=== PATIENT | female | born 1980 | race Caucasian/White ===

== ENCOUNTER 2017-05-29 19:27 | Emergency (ER) | payer OTHER ==
[2017-05-29 19:40] VITALS: RESP 18
[2017-05-29] MEDS ORDERED: SODIUM CHLORIDE 0.9% 500 ML IV ONE (20:05)
--- NOTE | 2017-05-29 20:12 | ED ---
Female Urogenital HPI - General Chief complaint: Vaginal Bleeding Stated complaint: poss miscarriage/10 wks preg Time Seen by Provider: 05/29/17 19:56 Source: patient Mode of arrival: ambulatory Limitations: no limitations - History of Present Illness Initial comments: 36-year-old female patient presented to emergency department today for evaluation of vaginal bleeding. Patient states about an hour ago she was walking through the mall, she states she felt a gush and began to have some left -sided abdominal cramping. Patient states that she went home was having bright red vaginal bleeding. States that she did have to put a pad on. States is similar to when she had her period. Patient states she is 10 weeks . She has had her initial ultrasound which did show a viable intrauterine . Patient is A2. Patient has had a miscarriage and a tubal in the past. Patient states she is also having some left-sided flank pain with this. She denies any hematuria, dysuria, urinary frequency or urinary urgency. Denies any difficulty with bowel movements. Patient she has one sexual partner is not concerned for any sexually transmitted diseases. Patient denies any recent fever, chills, shortness breath, chest pain, nausea, vomiting, diarrhea, constipation, back pain, numbness, tingling, weakness, hematuria, headache, visual changes, or any other complaints. - Related Data Home Medications Medication Instructions Recorded Confirmed No Known Home Medications [No 01/05/16 05/29/17 Known Home Medications] Allergies Allergy/AdvReac Type Severity Reaction Status Date / Time metoclopramide HCl AdvReac Hallucinati Verified 05/29/17 21:06 [From [facility]] ons Review of Systems ROS Statement: Those systems with pertinent positive or pertinent negative responses have been documented in the HPI. ROS Other: All systems not noted in ROS Statement are negative. Past Medical History Past Medical History: No Reported History Additional Past Medical History / Comment(s): occasional palpitations History of Any Multi-Drug Resistant Organisms: None Reported Additional Past Surgical History / Comment(s): D&C Past Anesthesia/Blood Transfusion Reactions: Previous Problems w/ Anesthesia Additional Past Anesthesia/Blood Transfusion Reaction / Comment(s): had some SOB waking up after last surgery Past Psychological History: Anxiety Smoking Status: Former smoker Past Alcohol Use History: None Reported Past Drug Use History: None Reported - Past Family History Mother Family Medical History: No Reported History General Exam Limitations: no limitations General appearance: alert, in no apparent distress ENT exam: Present: normal exam, normal oropharynx, mucous membranes moist Neck exam: Present: normal inspection. Absent: tenderness, meningismus, lymphadenopathy Respiratory exam: Present: normal lung sounds bilaterally. Absent: respiratory distress, wheezes, rales, rhonchi, stridor Cardiovascular Exam: Present: regular rate, normal rhythm, normal heart sounds. Absent: systolic murmur, diastolic murmur, rubs, gallop, clicks GI/Abdominal exam: Present: soft, normal bowel sounds, other (Gravid abdomen). Absent: distended, tenderness, guarding, rebound, rigid External exam: Present: normal external exam Speculum exam: Present: vaginal bleeding (Small amount of dark red blood in the vaginal vault.), other (Unable to view the cervix, patient stated exam was too uncomfortable and asked me to stop. Patient refused to have reexam.). Absent: foreign body By manual exam: Present: other (Patient refused bimanual exam.) Extremities exam: Present: normal inspection, full ROM, normal capillary refill. Absent: tenderness, pedal edema, joint swelling, calf tenderness Back exam: Present: normal inspection. Absent: CVA tenderness (R), CVA tenderness (L) Neurological exam: Present: alert, oriented X3, CN II-XII intact Psychiatric exam: Present: normal affect, normal mood Skin exam: Present: warm, dry, intact, normal color. Absent: rash Course Vital Signs 05/29/17 05/29/17 19:35 21:35 Temperature 99.5 F 98.6 F Pulse Rate 114 H 99 Respiratory 18 18 Rate Blood Pressure 140/74 113/60 O2 Sat by Pulse 100 99 Oximetry Medical Decision Making - Medical Decision Making 36-year-old female patient presented to emergency department today for evaluation of vaginal bleeding 1 hour. Patient is 10 weeks . Ultrasound showed a viable intrauterine measuring 9 weeks 6 days with a heart rate of 171. There was evidence of a subchorionic bleed on the ultrasound. Patient did not let me complete full pelvic and bimanual exam, she refused due to the exam being uncomfortable. Patient was discharged home with instructions to follow-up with her [employer]CH[employer] JOB [employer]TAIN over the next 1-2 days. She is instructed to return here immediately for any new, worsening, or concerning symptoms. Patient verbalizes understanding and agrees with this plan. - Lab Data Result diagrams: 05/29/17 20:15 05/29/17 20:15 Lab Results 05/29/17 05/29/17 05/29/17 Range/Units 20:15 20:15 20:15 WBC 10.5 (3.8-10.6) k/uL RBC 4.51 (3.80-5.40) m/uL Hgb 12.6 (11.4-16.0) gm/dL Hct 37.6 (34.0-46.0) % MCV 83.3 (80.0-100.0) fL MCH 27.8 (25.0-35.0) pg MCHC 33.4 (31.0-37.0) g/dL RDW 14.4 (11.5-15.5) % Plt Count 161 (150-450) k/uL Neutrophils % 71 % Lymphocytes % 22 % Monocytes % 3 % Eosinophils % 1 % Basophils % 0 % Neutrophils # 7.5 (1.3-7.7) k/uL Lymphocytes # 2.3 (1.0-4.8) k/uL Monocytes # 0.3 (0-1.0) k/uL Eosinophils # 0.1 (0-0.7) k/uL Basophils # 0.0 (0-0.2) k/uL Sodium 135 L (137-145) mmol/L Potassium 3.8 (3.5-5.1) mmol/L Chloride 105 (98-107) mmol/L Carbon Dioxide 21 L (22-30) mmol/L Anion Gap 9 mmol/L BUN 10 (7-17) mg/dL Creatinine 0.50 L (0.52-1.04) mg/dL Est GFR (MDRD) Af Amer >60 (>60 ml/min/1.73 sqM) Est GFR (MDRD) Non-Af >60 (>60 ml/min/1.73 sqM) Glucose 91 (74-99) mg/dL Calcium 9.3 (8.4-10.2) mg/dL Total Bilirubin 0.2 (0.2-1.3) mg/dL AST 26 (14-36) U/L ALT 43 (9-52) U/L Alkaline Phosphatase 64 (38-126) U/L Total Protein 6.8 (6.3-8.2) g/dL Albumin 4.0 (3.5-5.0) g/dL HCG, Quant 71968.2 mIU/mL Urine Color Urine Appearance (Clear) Urine pH (5.0-8.0) Ur Specific [place] (1.001-1.035) Urine Protein (Negative) Urine Glucose (UA) (Negative) Urine Ketones (Negative) Urine Blood (Negative) Urine Nitrite (Negative) Urine Bilirubin (Negative) Urine Urobilinogen (<2.0) mg/dL Ur Leukocyte Esterase (Negative) Urine RBC (0-5) /hpf Urine WBC (0-5) /hpf Ur Squamous Epith Cells (0-4) /hpf Urine Mucus (None) /hpf Blood Type A Positive Blood Type Recheck No 05/29/17 Range/Units 20:20 WBC (3.8-10.6) k/uL RBC (3.80-5.40) m/uL Hgb (11.4-16.0) gm/dL Hct (34.0-46.0) % MCV (80.0-100.0) fL MCH (25.0-35.0) pg MCHC (31.0-37.0) g/dL RDW (11.5-15.5) % Plt Count (150-450) k/uL Neutrophils % % Lymphocytes % % Monocytes % % Eosinophils % % Basophils % % Neutrophils # (1.3-7.7) k/uL Lymphocytes # (1.0-4.8) k/uL Monocytes # (0-1.0) k/uL Eosinophils # (0-0.7) k/uL Basophils # (0-0.2) k/uL Sodium (137-145) mmol/L Potassium (3.5-5.1) mmol/L Chloride (98-107) mmol/L Carbon Dioxide (22-30) mmol/L Anion Gap mmol/L BUN (7-17) mg/dL Creatinine (0.52-1.04) mg/dL Est GFR (MDRD) Af Amer (>60 ml/min/1.73 sqM) Est GFR (MDRD) Non-Af (>60 ml/min/1.73 sqM) Glucose (74-99) mg/dL Calcium (8.4-10.2) mg/dL Total Bilirubin (0.2-1.3) mg/dL AST (14-36) U/L ALT (9-52) U/L Alkaline Phosphatase (38-126) U/L Total Protein (6.3-8.2) g/dL Albumin (3.5-5.0) g/dL HCG, Quant mIU/mL Urine Color Yellow Urine Appearance Clear (Clear) Urine pH 6.0 (5.0-8.0) Ur Specific [place] 1.018 (1.001-1.035) Urine Protein Trace H (Negative) Urine Glucose (UA) Negative (Negative) Urine Ketones Trace H (Negative) Urine Blood Large H (Negative) Urine Nitrite Negative (Negative) Urine Bilirubin Negative (Negative) Urine Urobilinogen <2.0 (<2.0) mg/dL Ur Leukocyte Esterase Negative (Negative) Urine RBC >182 H (0-5) /hpf Urine WBC 2 (0-5) /hpf Ur Squamous Epith Cells 1 (0-4) /hpf Urine Mucus Rare H (None) /hpf Blood Type Blood Type Recheck - Radiology Data Radiology results: report reviewed, image reviewed Abdominal ultrasound shows a viable intrauterine measuring 9 weeks 6 days with a heart rate of 171. Ultrasound does show presence of a subchorionic bleed. Disposition Clinical Impression: Threatened miscarriage, Subchorionic hemorrhage in first trimester, Abdominal pain during in first trimester Disposition: HOME SELF-CARE Condition: Good Instructions: Threatened Miscarriage (ED), Abdominal Pain in (ED), Subchorionic Hemorrhage (ED) Additional Instructions: Call [employer] tomorrow for follow-up appointment. Monitor rate of bleeding (keep track of pad usage), do not insert tampons. Return immediately for any dizziness, weakness, new, worsening, or concerning symptoms. Referrals: Chris Keene MD [Primary Care Provider] - 1-2 days Bulmaro Alexis MD [STAFF PHYSICIAN] - 1-2 days Time of Disposition: 22:10
[2017-05-29 20:36] LABS: Basophils % (A) 0 %; CH 28.5; CHCM 34.4; Eosinophils # (A) 0.1 k/uL (0-0.7); Eosinophils % (A) 1 %; HCT 37.6 % (34.0-46.0); HGB 12.6 gm/dL (11.4-16.0); Luc # (Auto) 0.18; Luc % (Auto) 2; Lymphocytes # (A) 2.3 k/uL (1.0-4.8); Lymphocytes % (A) 22 %; MCH 27.8 pg (25.0-35.0); MCHC 33.4 g/dL (31.0-37.0); MCV 83.3 fL (80.0-100.0); Mean Platelet Volume 9.7; Monocytes # (A) 0.3 k/uL (0-1.0); Monocytes % (A) 3 %; Neutrophils # (A) 7.5 k/uL (1.3-7.7); Neutrophils % (A) 71 %; RBC 4.51 m/uL (3.80-5.40); RDW 14.4 % (11.5-15.5); WBC 10.5 k/uL (3.8-10.6); WBC (Perox) 10.68
[2017-05-29 20:46] LABS: ALT 43 U/L (9-52); AST 26 U/L (14-36); Alkaline Phosphatase 64 U/L (38-126); Anion Gap 9 mmol/L; Blood Urea Nitrogen 10 mg/dL (7-17); Calcium 9.3 mg/dL (8.4-10.2); Carbon Dioxide 21 mmol/L (22-30); Chloride 105 mmol/L (98-107); Glucose 91 mg/dL (74-99); Non-African American GFR(MDRD) >60 (>60 ml/min/1.73 sqM); Potassium 3.8 mmol/L (3.5-5.1); Sodium 135 mmol/L (137-145); Total Bilirubin 0.2 mg/dL (0.2-1.3); Total Protein 6.8 g/dL (6.3-8.2)
[2017-05-29 20:59] LABS: Appearance,Urine Clear (Clear); Bilirubin,Urine Negative (Negative); Glucose,Urine (UA) Negative (Negative); Ketones,Urine Trace (Negative); Leukocyte Esterase,Urine Negative (Negative); Mucus,Urine Rare /hpf; Nitrite,Urine Negative (Negative); Particle Count 1682; Protein,Urine Trace (Negative); RBC,Urine >182 /hpf (0-5); Specific Gravity,Urine 1.018 (1.001-1.035); Squamous Epithelial Cell,Urine 1 /hpf (0-4); UA Billing (MACRO vs. MICRO) MICRO; Urobilinogen,Urine <2.0 mg/dL (<2.0); WBC,Urine 2 /hpf (0-5)
--- NOTE | 2017-05-29 21:27 | US ---
EXAMINATION TYPE: US OB <= 14 wk fetus DATE OF EXAM: 05/29/2017 COMPARISON: NONE CLINICAL HISTORY: pain. Bleeding x 1 day EXAM PERFORMED: Transabdominal (TA) EXAM MEASUREMENTS: GESTATIONAL AGE / DATING Physician Established: (10 weeks/2 days) EDC: 12/23/2017 Dates by LMP: (10 weeks/2 days) EDC: 12/23/2017 Dates by First Scan: This is first scan Dates by Current Scan for: ( 9 weeks/6 days) EDC: 12/26/2017 MATERNAL ANATOMY Uterus: 12.8 x 8.4 x 10.4 cm Left Ovary: 3.3 x 1.9 x 3.3 cm Post CDS / Adnexa: wnl Presence of free fluid: no Presence of corpus luteal cyst: no Presence of subchorionic bleed: yes GESTATION / SURVEY CRL: 3.87 (10 weeks/5 days) MSD: 3.8 (9 weeks/0 days) Yolk Sac (normal less than 6mm): 0.47 Heart Rate: 171 bpm Rhythm: Normal IUP: Viable IUP Date of LMP: 03/18/2017 Beta HcG (if available): not available IMPRESSION: SINGLE VIABLE INTRAUTERINE WITH HEART RATE 171 BPM.
[2017-05-29 21:36] VITALS: BP 113/60; PULSE 99; TEMP 98.6
== END 2017-05-29 22:32 | disposition home or self-care (01) ==
LOC: EC 19:27
DX: O20.0 Threatened abortion (principal); O43.891 Other placental disorders, first trimester; O09.291 Supervision of pregnancy with other poor reproductive or obstetric history, first trimester; Z98.890 Other specified postprocedural states; Z87.891 Personal history of nicotine dependence; Z88.8 Allergy status to other drugs, medicaments and biological substances; Z3A.10 10 weeks gestation of pregnancy
CPT/HCPCS: 36415; 76801; 80053; 81001; 84702; 85025; 86900; 86901; 96360; 99284

== ENCOUNTER → 2017-06-10 | Outpatient (CLI) | payer OTHER ==
[2017-06-10 10:20] LABS: CH 26.9; CHCM 33.1; HDW 2.48; HGB 12.4 gm/dL (11.4-16.0); MCH 28.2 pg (25.0-35.0); MCHC 34.5 g/dL (31.0-37.0); MCV 81.8 fL (80.0-100.0); Mean Platelet Volume 9.3; RDW 13.9 % (11.5-15.5); WBC 8.2 k/uL (3.8-10.6)
[2017-06-10 10:37] LABS: Glucose 83 mg/dL (74-99); Non-African American GFR(MDRD) >60 (>60 ml/min/1.73 sqM)
[2017-06-10 10:59] LABS: Hepatitis B Surface Ag Index 0.04
[2017-06-10 15:46] LABS: Treponemal Ab Non-Reactive (Non-Reactive)
[2017-06-11 04:56] LABS: Toxoplasma Antibody (IgG) <3.0 IU/mL (<7.2)
== END | disposition home or self-care (01) ==
LOC: LABWHC1 09:22
PROVIDERS: ATTEND Obstetrics & Gynecology
DX: Z34.91 Encounter for supervision of normal pregnancy, unspecified, first trimester (principal)
CPT/HCPCS: 36415; 82565; 82947; 85027; 86762; 86777; 86778; 86780; 86850; 86900; 86901; 87340; 87390

== ENCOUNTER 2017-12-16 04:20 | Inpatient (IN) | payer OTHER ==
[2017-12-16 04:57] VITALS: BMI 40.0
[2017-12-16] MEDS ORDERED: CITRIC ACID-SODIUM CITRATE 15 ML CUP PO ONE (05:06)
[2017-12-16] MEDS ORDERED: LACTATED RINGERS 1,000 ML IV ONE (05:06)
[2017-12-16] MEDS ORDERED: ceFAZolin IN SWFI 2 GM/20 ML SYRINGE IVP ONE (05:06)
[2017-12-16] MEDS ORDERED: LACTATED RINGERS 1,000 ML IV SCH (05:15)
[2017-12-16] MEDS ORDERED: OXYTOCIN 10 UNIT/ML 1 ML VIAL ONE (05:58)
[2017-12-16] MEDS ORDERED: MORPHINE SULFATE (PF) 0.3 MG/0.3 ML SYR ONE (05:58)
[2017-12-16] MEDS ORDERED: fentaNYL (PF) 50 MCG/ML 2 ML AMP ONE (05:58)
[2017-12-16] MEDS ORDERED: KETOROLAC 30 MG/ML 1 ML VIAL ONE (05:58)
[2017-12-16] MEDS ORDERED: DEXAMETHASONE SOD PHOS (MDV) 100 MG/10 ML VIAL ONE (05:58)
[2017-12-16] MEDS ORDERED: MIDAZOLAM 2 MG/2 ML VIAL ONE (05:58)
[2017-12-16 06:02] LABS: Anisocytosis Slight; Basophils % (A) 0 %; Eosinophils # (A) 0.1 k/uL (0-0.7); Eosinophils % (A) 1 %; HCT 32.7 % (34.0-46.0); HGB 10.7 gm/dL (11.4-16.0); Lymphocytes # (A) 2.2 k/uL (1.0-4.8); Lymphocytes % (A) 24 %; MCH 25.5 pg (25.0-35.0); MCHC 32.7 g/dL (31.0-37.0); MCV 77.9 fL (80.0-100.0); Mean Platelet Volume 11.9; Microcytosis Slight; Monocytes # (A) 0.3 k/uL (0-1.0); Monocytes % (A) 4 %; Neutrophils # (A) 6.2 k/uL (1.3-7.7); Neutrophils % (A) 68 %; Platelet Count 157 k/uL (150-450); WBC 9.1 k/uL (3.8-10.6)
[2017-12-16] MEDS ORDERED: ZOLPIDEM 5 MG TAB PO PRN (06:54)
[2017-12-16] MEDS ORDERED: NALOXONE 0.4 MG/ML 1 ML VIAL IV PRN (06:54)
[2017-12-16] MEDS ORDERED: ONDANSETRON 4 MG/2 ML VIAL IVP PRN (06:54)
[2017-12-16] MEDS ORDERED: SIMETHICONE 80 MG CHEWABLE PO PRN (06:54)
[2017-12-16] MEDS ORDERED: diphenhydrAMINE 25 MG CAP PO PRN (06:54)
[2017-12-16] MEDS ORDERED: ACETAMINOPHEN TAB 325 MG TAB PO PRN (06:54)
[2017-12-16] MEDS ORDERED: diphenhydrAMINE 50 MG/ML 1 ML VIAL IVP PRN (06:54)
[2017-12-16] MEDS ORDERED: OXYTOCIN 20 UNITS/1000 ML NS 1,000 ML IV SCH (07:00)
--- NOTE | 2017-12-16 07:12 | P.OP ---
Date of Procedure: 12/16/17 Preoperative Diagnosis: #1:39 week intrauterine . #2: Spontaneous rupture membranes. #3: Known breech presentation. #4: Multi parity desires permanent sterilization Postoperative Diagnosis: same Procedure(s) Performed: primary low transverse section and bilateral partial salpingectomy. Anesthesia: spinal Surgeon: Bulmaro Alexis Stock Controller #1: Juliana Garcia Estimated Blood Loss (ml): 800 Pathology: other (placenta and bilateral fallopian tube segments) Condition: stable Disposition: floor Indications for Procedure: please see dictated H&P for intimate details of this patient's admission. Brief summary this is a pleasant 37-year-old 5 para 2 female 39 weeks gestation with known breech presentation who initially was scheduled for C- section and tubal ligation this however had spontaneous rupture membranes earlier this morning. Patient's found to be in active labor ruptured and still breech presentation. Patient now presents for primary section and tubal ligation. Patient does understand that a tubal ligation is permanent however there is a failure rate of approximately 5-10 per thousand procedures done. She also understands that surgery itself has inherent risks including risks of infection, bleeding, possible injury to bowel, bladder, vessels, and/or other organs. All the patient's questions are answered and a written consent is obtained. Operative Findings: this is a vigorous viable female infant Apgars were 9 and 9 delivery time was 0620 hours. was jesika breech presentation. Patient normal appearing uterus tubes and ovaries. Description of Procedure: this patient is taken to the operating room where she sat up and spinal anesthetic is administered without incident. Sheet RD had a Solano catheter placed to straight drain. With adequate level of anesthesia she has abdominal prep and drape. Scalpels and taken Pfannenstiel skin incision is then made. A second scalpel is taken down to the fascia the fascia scored with a knife. Fascial incision extended bilaterally using the Godfrey scissors. Fascia is then dissected sharply off the rectus muscles. Rectus muscles are the peritoneum was identified and entered sharply. Bladder blade is then placed. Bladder peritoneum was taken off the lower uterine segment sharply. Scalpels and taken a low transverse uterine incision is then made. Using a hemostat I into the uterine cavity bluntly and there is loss of clear fluid. Infant is found to be in sacrum anterior jesika breech presentation. Using the usual breech maneuvers, this is delivered. This is a vigorous viable female infant Apgars 9 and 9 delivery time is 0620 hours. Infant has spontaneous respirations and good cry and grossly appears normal. After delivery of the the umbilical cord is doubly clamped and cut appears to be trivascular. Senna is then manually extracted intact. Uterus is then externalized. Uterine incision demarcated with Cates clamps and then closed using 0 Vicryl running locked fashion. 2 layers are done. With this done I then reapproximate the bladder peritoneum with 3-0 Vicryl. Excellent hemostasis is noted. Then turned my attention to the left fallopian tube and approximately 4 cm from the cornual insertion a small window made to the mesial salpinx using Bovie cautery. Using 2-0 silk I doubly ligate a segment of the left fallopian tube. This is excised and handed off to pathology. I cauterize the tubal ends. Using a similar technique I do the right fallopian tube segment as well. This done and excellent hemostasis noted excess fluid is removed from the abdomen and pelvis. Uterus is gently placed back into the abdomen and I suspect the tubal ends which are hemostatic and uterine incision which is hemostatic. Parietal peritoneum was then closed using 0 Vicryl running fashion. Rectus muscles reapproximated Vicryl interrupted fashion. Fascia is then reapproximated in 0 PDS in a running fashion. Fascial incision is intact and hemostatic. Subcutaneous tissues and closed using a 3-0 Vicryl. Skin is and closed using mauricio. All counts are correct 3. There are no complications. Infant and mother are taken to the birthing suite in satisfactory condition.
[2017-12-16 07:14] LABS: Large Platelets Present
--- NOTE | 2017-12-16 07:17 | P.HPOB ---
History of Present Illness H&P Date: 12/16/17 Chief Complaint: leaking fluid and contractions, known breech this patient is a pleasant 37-year-old 5 para 2 female estimated gestational age approximately 39 weeks with known breech presentation scheduled for section and tubal ligation on . Patient states that her water broke earlier this morning she is now having active contractions. care has been otherwise uncomplicated and was breech at 35 weeks in the vertex and the most recently reverted back to breech. Review of Systems Genitourinary: Reports Menstruation: Reports amenorrhea Past Medical History Past Medical History: No Reported History Additional Past Medical History / Comment(s): occasional palpitations History of Any Multi-Drug Resistant Organisms: None Reported Additional Past Surgical History / Comment(s): D&C Past Anesthesia/Blood Transfusion Reactions: Previous Problems w/ Anesthesia Additional Past Anesthesia/Blood Transfusion Reaction / Comment(s): had some SOB waking up after last surgery Past Psychological History: Anxiety Smoking Status: Former smoker Past Alcohol Use History: None Reported Additional Past Alcohol Use History / Comment(s): has smoked off & on since teens Past Drug Use History: None Reported - Past Family History Mother Family Medical History: No Reported History Medications and Allergies Home Medications Medication Instructions Recorded Confirmed Type Iron 12/16/17 History Allergies Allergy/AdvReac Type Severity Reaction Status Date / Time metoclopramide HCl AdvReac Hallucinati Verified 12/16/17 04:31 [From [facility]] ons Exam - Vital Signs Vital signs: Vital Signs Temp Pulse Resp BP Pulse Ox 12/16/17 06:54 97.2 F L 103 H 18 141/92 95 12/16/17 05:05 98.1 F 105 H 20 179/97 12/16/17 04:43 105 H 16 179/97 Intake and Output 12/15/17 12/16/17 12/16/17 22:59 06:59 14:59 Intake Total 1000 Output Total 250 Balance 750 Intake: IV 1000 Lactated Ringers 1,000 ml 1000 @ 4000 mls/hr IV .Q15M ONE Rx#:[id number] Output: Urine 250 Other: Weight 102.512 kg - OBG Physical Exam Abdomen: bowel sounds normal, no diffuse tenderness, no bruit present, no guarding noted, no hepatomegaly, no splenomegaly, no mass Vulva: both: normal Cervix: cervix is 2-3 cm with gross rupture membranes meconium fluid Uterus: enlarged Results bedside ultrasound shows persistent breech Result Diagrams: 12/16/17 05:35 Abnormal Lab Results - Last 24 Hours (Table) 12/16/17 Range/Units 05:35 Hgb 10.7 L (11.4-16.0) gm/dL Hct 32.7 L (34.0-46.0) % MCV 77.9 L (80.0-100.0) fL RDW 16.0 H (11.5-15.5) % Assessment and Plan Assessment: this is a pleasant 37-year-old 5 para 2 female 39 weeks gestation with spontaneous rupture membranes active labor known breech presentation also requesting permanent sterilization. Plan is primary low transverse section and bilateral partial salpingectomy. Patient I have discussed the surgery in the office and she understands the permanence of this procedure and the risks including risks of infection, bleeding, possible injury bowel, bladder , vessels, and other organs. She understands risk of DVT and pulmonary embolism. All the patient's questions are answered written consent is obtained. (1) Third trimester Current Visit: Yes Status: Acute Code(s): Z34.93 - ENCNTR FOR SUPRVSN OF NORMAL PREG, UNSP, THIRD TRIMESTER SNOMED Code(s): 78649379 (2) Breech Current Visit: Yes Status: Acute Code(s): O32.1XX0 - MATERNAL CARE FOR BREECH PRESENTATION, UNSP SNOMED Code(s): 049418942 (3) Family planning Current Visit: Yes Status: Acute Code(s): Z30.09 - ENCOUNTER FOR OTH GENERAL CNSL AND ADVICE ON CONTRACEPTION SNOMED Code(s): 708300958
[2017-12-16 07:18] LABS: Polychromasia Present
[2017-12-16] MEDS: SENNOSIDES-DOCUSATE SODIUM 1 EACH TAB PO SCH ×2 (12:36→20:22)
[2017-12-16] MEDS: LACTATED RINGERS 1,000 ML IV SCH ×2 (12:36→20:23)
[2017-12-16] MEDS: ceFAZolin IN SWFI 2 GM/20 ML SYRINGE IVP SCH ×2 (15:24→22:59)
[2017-12-16] MEDS: KETOROLAC 30 MG/ML 1 ML VIAL IVP PRN (20:23)
[2017-12-17] MEDS: KETOROLAC 30 MG/ML 1 ML VIAL IVP PRN (03:10)
[2017-12-17] MEDS: LACTATED RINGERS 1,000 ML IV SCH (05:35)
--- NOTE | 2017-12-17 06:14 | P.PNOBGPC ---
Subjective - Subjective Patient reports: Reports appetite normal, Reports voiding normally, Reports pain well controlled, Reports ambulating normally : doing well Objective - Vital Signs Latest vital signs: Vital Signs Temp Pulse Resp BP BP Pulse Ox 12/17/17 04:00 98.5 F 95 16 124/70 12/17/17 00:00 98.7 F 100 16 127/80 12/16/17 20:00 98.7 F 108 H 16 133/77 12/16/17 16:00 99.4 F 100 16 136/73 12/16/17 12:32 98.6 F 100 18 137/74 12/16/17 10:30 98.8 F 105 H 16 127/80 12/16/17 08:54 98.9 F 95 16 139/79 98 12/16/17 08:24 99.3 F 100 18 157/80 97 12/16/17 07:54 99.3 F 93 20 160/78 160 H 12/16/17 07:39 98.8 F 84 18 147/67 94 L 12/16/17 07:24 98.8 F 93 18 137/66 98 12/16/17 07:09 110 H 16 162/75 95 12/16/17 06:54 97.2 F L 103 H 18 141/92 95 Intake and Output 12/16/17 12/16/17 12/17/17 14:59 22:59 06:59 Output Total 100 1000 500 Balance -100 -1000 -500 Output: Urine 100 1000 500 Uretheral (Solano) 600 Other: # Voids 1 1 - Exam Lungs: bilateral: normal Chest: Normal S1, Normal S2 Extremities: Present: normal Abdomen: Present: normal appearance, soft. Absent: distention, tenderness Incision: Present: normal, dry, intact Uterus: Present: normal, firm - Labs Labs: Abnormal Lab Results - Last 24 Hours (Table) 12/16/17 Range/Units 05:35 Hgb 10.7 L (11.4-16.0) gm/dL Hct 32.7 L (34.0-46.0) % MCV 77.9 L (80.0-100.0) fL RDW 16.0 H (11.5-15.5) % Assessment and Plan Assessment: Post operative day #1. Patient is resting without complaints. Vital signs are stable she is afebrile. Uterus is firm nontender she is having normal lochia. Incision is intact and dry. My impression is a normal course. Plan is to continue routine care, check CBC, encourage ambulation, allow the patient to shower. (1) Third trimester Current Visit: Yes Status: Acute Code(s): Z34.93 - ENCNTR FOR SUPRVSN OF NORMAL PREG, UNSP, THIRD TRIMESTER SNOMED Code(s): 49685836 (2) Breech Current Visit: Yes Status: Acute Code(s): O32.1XX0 - MATERNAL CARE FOR BREECH PRESENTATION, UNSP SNOMED Code(s): 497970498 (3) Family planning Current Visit: Yes Status: Acute Code(s): Z30.09 - ENCOUNTER FOR OTH GENERAL CNSL AND ADVICE ON CONTRACEPTION SNOMED Code(s): 642739079
--- NOTE | 2017-12-17 06:24 | P.PN ---
Progress Note - Text Date: 12/17/2017 Time: 0557 The patient is status post section Vital signs stable VAS: 0-10 Patient has no complaints of pain. The patient incurred some minimal itching yesterday, this itching is now subsiding. Pain meds to be managed by service.
[2017-12-17 08:33] LABS: Basophils % (A) 0 %; Eosinophils # (A) 0.1 k/uL (0-0.7); Eosinophils % (A) 1 %; HCT 26.4 % (34.0-46.0); HGB 8.8 gm/dL (11.4-16.0); Lymphocytes # (A) 1.5 k/uL (1.0-4.8); Lymphocytes % (A) 16 %; MCH 25.6 pg (25.0-35.0); MCHC 33.3 g/dL (31.0-37.0); MCV 76.8 fL (80.0-100.0); Mean Platelet Volume 11.8; Microcytosis Slight; Monocytes # (A) 0.3 k/uL (0-1.0); Monocytes % (A) 4 %; Neutrophils # (A) 7.1 k/uL (1.3-7.7); Neutrophils % (A) 78 %; Platelet Count 129 k/uL (150-450); RBC 3.44 m/uL (3.80-5.40); WBC 9.1 k/uL (3.8-10.6)
[2017-12-17] MEDS ORDERED: MEASLES-MUMPS-RUBELLA VACC/PF 12,500 UNIT/0.5 ML VIAL SQ ONE (09:24)
[2017-12-17] MEDS: SENNOSIDES-DOCUSATE SODIUM 1 EACH TAB PO SCH ×2 (09:38→22:07)
[2017-12-17] MEDS: HYDROcodone/APAP 5-325MG 1 EACH TAB PO PRN ×2 (09:40→18:56)
[2017-12-17 10:40] LABS: Anisocytosis (M) Present; Large Platelets Present
[2017-12-17] MEDS: IBUPROFEN 600 MG TAB PO PRN ×2 (13:32→22:07)
[2017-12-18] MEDS: HYDROcodone/APAP 5-325MG 1 EACH TAB PO PRN ×4 (01:44→23:24)
[2017-12-18] MEDS: IBUPROFEN 600 MG TAB PO PRN ×3 (06:10→20:08)
--- NOTE | 2017-12-18 06:33 | P.PNOBGPC ---
Subjective - Subjective Patient reports: Reports appetite normal, Reports voiding normally, Reports pain well controlled, Reports ambulating normally : doing well Objective - Vital Signs Latest vital signs: Vital Signs Temp Pulse Resp BP BP Pulse Ox 12/18/17 00:00 98.1 F 98 15 126/67 12/17/17 16:00 97.1 F L 99 18 130/78 98 12/17/17 12:00 98.6 F 102 H 16 138/85 97 12/17/17 08:00 98.4 F 98 16 138/80 - Exam Lungs: bilateral: normal Chest: Normal S1, Normal S2 Extremities: Present: normal Abdomen: Present: normal appearance, soft. Absent: distention, tenderness Incision: Present: normal, dry, intact Uterus: Present: normal, firm - Labs Labs: Abnormal Lab Results - Last 24 Hours (Table) 12/17/17 Range/Units 08:02 RBC 3.44 L (3.80-5.40) m/uL Hgb 8.8 L D (11.4-16.0) gm/dL Hct 26.4 L (34.0-46.0) % MCV 76.8 L (80.0-100.0) fL RDW 16.0 H (11.5-15.5) % Plt Count 129 L (150-450) k/uL Assessment and Plan Assessment: Post operative day #2. Patient is resting without complaints. Vital signs are stable and she is afebrile. Hemoglobin is 8.8 preoperatively was 10.7 and she has been on iron at home. Uterus is firm nontender and her incision is intact and dry. Patient is tolerating regular diet and ambulating, urinating without difficulty. My impression this is a normal post operative course. She has chronic anemia. Plan is to continue routine postoperative care and most likely discharge home tomorrow. (1) Third trimester Current Visit: Yes Status: Acute Code(s): Z34.93 - ENCNTR FOR SUPRVSN OF NORMAL PREG, UNSP, THIRD TRIMESTER SNOMED Code(s): 91351033 (2) Breech Current Visit: Yes Status: Acute Code(s): O32.1XX0 - MATERNAL CARE FOR BREECH PRESENTATION, UNSP SNOMED Code(s): 928528706 (3) Family planning Current Visit: Yes Status: Acute Code(s): Z30.09 - ENCOUNTER FOR OTH GENERAL CNSL AND ADVICE ON CONTRACEPTION SNOMED Code(s): 315768152
[2017-12-18] MEDS: SENNOSIDES-DOCUSATE SODIUM 1 EACH TAB PO SCH (07:50)
[2017-12-18] MEDS: IRON AG/C/B12/CA/SUC.ACID/STOM 1 EACH TAB PO SCH (12:29)
[2017-12-19 00:09] VITALS: TEMP 98
[2017-12-19] MEDS: SENNOSIDES-DOCUSATE SODIUM 1 EACH TAB PO SCH ×2 (00:30→11:10)
[2017-12-19] MEDS: IBUPROFEN 600 MG TAB PO PRN ×2 (02:18→10:57)
[2017-12-19] MEDS: HYDROcodone/APAP 5-325MG 1 EACH TAB PO PRN (07:52)
--- NOTE | 2017-12-19 08:55 | P.DS ---
Providers Date of admission: 12/16/17 04:41 Expected date of discharge: 12/19/17 Attending physician: Bulmaro Alexis Primary care physician: Bulmaro Alexis [facility] Course: This is a 37-year-old female 5 para 2 at 39 weeks who presented with spontaneous rupture membranes with thin meconium and breech presentation. She underwent a primary low transverse section with bilateral partial salpingectomy on 12/16/2017. Her postoperative course has been essentially uncomplicated. She is passing flatus and bowel movement. Pain is fairly well controlled. She is breast-feeding. Vital signs are stable. Abdomen is soft with positive bowel sounds 4. Incision is clean dry and intact. Extremities show negative Homans. Impression is status post repeat primary section with bilateral partial salpingectomy postoperative day #3. Plan is to discharge home today. Routine postoperative and instructions are given. She already has prescriptions from Dr. Alexis. She is advised to follow up in the office in approximately 1 week for a postoperative check and in 6 weeks for a check. She is advised to call the office if she has any further questions or concerns prior to her appointment time. Procedures: Primary low transverse section with bilateral partial salpingectomy on 12/16/2017 Patient Condition at Discharge: Stable Plan - Discharge Summary New Discharge Prescriptions: New HYDROcodone/APAP 5-325MG [[place] 5-325] 1 - 2 each PO Q4HR PRN #40 tab PRN Reason: Pain Ibuprofen [Motrin] 600 mg PO Q6HR PRN #40 tab PRN Reason: Mild Pain Or Fever >= 100.5 No Action Iron Discharge Medication List Iron 12/16/17 [History] HYDROcodone/APAP 5-325MG [[place] 5-325] 1 - 2 each PO Q4HR PRN #40 tab 12/18/17 [ Rx] Ibuprofen [Motrin] 600 mg PO Q6HR PRN #40 tab 12/18/17 [Rx] Follow up Appointment(s)/Referral(s): Bulmaro Alexis MD [Primary Care Provider] - 1 Week (Patient also has a appointment on January 27 at 11:45 AM.) Patient Instructions/Handouts: (DC) Activity/Diet/Wound Care/Special Instructions: No intercourse or anything per vagina for 6 weeks. No strenuous activity or heavy lifting. No driving. Please call if any fever, chills, excessive vaginal bleeding, and/or abdominal pain. Discharge Disposition: HOME SELF-CARE
[2017-12-19 10:58] VITALS: BP 138/88; PULSE 76; RESP 16
[2017-12-19] MEDS: IRON AG/C/B12/CA/SUC.ACID/STOM 1 EACH TAB PO SCH (11:11)
== END 2017-12-19 15:50 | disposition home or self-care (01) | DRG 766 ==
LOC: FBPOP 04:20 → 4FBP 04:41
PROVIDERS: ADMIT Obstetrics & Gynecology; ATTEND Obstetrics & Gynecology
PROC: 0UB70ZZ Excision of Bilateral Fallopian Tubes, Open Approach (ICD-10-PCS; 2017-12-16)
PROC: 3E0R3NZ Introduction of Analgesics, Hypnotics, Sedatives into Spinal Canal, Percutaneous Approach (ICD-10-PCS; 2017-12-16)
PROC: 00HU33Z Insertion of Infusion Device into Spinal Canal, Percutaneous Approach (ICD-10-PCS; 2017-12-16)
PROC: 10D00Z1 Extraction of Products of Conception, Low, Open Approach (ICD-10-PCS; principal; 2017-12-16 05:56)
DX: O32.1XX0 Maternal care for breech presentation, not applicable or unspecified (principal); D64.9 Anemia, unspecified; O99.02 Anemia complicating childbirth; O99.62 Diseases of the digestive system complicating childbirth; K21.9 Gastro-esophageal reflux disease without esophagitis; O77.0 Labor and delivery complicated by meconium in amniotic fluid; Z37.0 Single live birth; Z3A.39 39 weeks gestation of pregnancy; Z87.891 Personal history of nicotine dependence; Z86.59 Personal history of other mental and behavioral disorders
CPT/HCPCS: 59025; 84112; 85025; 86850; 86900; 86901; 88302; 88307; 90471; 90707; 99213

== ENCOUNTER → 2020-08-01 | Outpatient (CLI) | payer OTHER ==
[2020-08-01 08:04] LABS: Basophils % (A) 0 %; Eosinophils # (A) 0.1 k/uL (0-0.7); Eosinophils % (A) 2 %; HCT 42.1 % (34.0-46.0); HGB 13.9 gm/dL (11.4-16.0); Lymphocytes # (A) 2.6 k/uL (1.0-4.8); Lymphocytes % (A) 41 %; MCH 27.4 pg (25.0-35.0); MCV 83.1 fL (80.0-100.0); Mean Platelet Volume 10.4; Monocytes # (A) 0.4 k/uL (0-1.0); Monocytes % (A) 6 %; Neutrophils # (A) 3.1 k/uL (1.3-7.7); Neutrophils % (A) 49 %; Platelet Count 145 k/uL (150-450); RBC 5.06 m/uL (3.80-5.40); RDW 13.3 % (11.5-15.5); WBC 6.4 k/uL (3.8-10.6)
== END | disposition home or self-care (01) ==
LOC: LABPAT 07:08
PROVIDERS: ATTEND Obstetrics & Gynecology
DX: Z01.818 Encounter for other preprocedural examination (principal)
CPT/HCPCS: 36415; 85025

== ENCOUNTER 2020-08-02 05:47 | Day surgery (SDC) | payer OTHER ==
[2020-07-31 13:40] VITALS: BMI 28.8
--- NOTE | 2020-08-01 18:07 | P.HPOB ---
History of Present Illness H&P Date: 08/01/20 Chief Complaint: Menorrhagia This patient is a pleasant 39-year-old 5 para 3 female who presented to my office with complaints of menorrhagia requesting endometrial ablation. Transvaginal ultrasound was done which is normal. Patient has had a tubal ligation for control. Patient does not wish to try hormonal methods for controlling her menses and therefore requesting endometrial ablation. Review of Systems Menstruation: Reports as per HPI, Reports period heavy Past Medical History Past Medical History: GERD/Reflux Additional Past Medical History / Comment(s): occasional palpitations History of Any Multi-Drug Resistant Organisms: None Reported Past Surgical History: Section Additional Past Surgical History / Comment(s): D&C. She had a laparotomy for an ectopic . She also had incision of an external hemorrhoid Past Anesthesia/Blood Transfusion Reactions: Previous Problems w/ Anesthesia, Postoperative Nausea & Vomiting (PONV) Additional Past Anesthesia/Blood Transfusion Reaction / Comment(s): Had some SOB waking up after last surgery. Past Psychological History: Anxiety Smoking Status: Current every day smoker Past Alcohol Use History: None Reported Additional Past Alcohol Use History / Comment(s): Has smoked off & on since teens. Past Drug Use History: None Reported - Past Family History Mother Family Medical History: No Reported History Medications and Allergies Home Medications Medication Instructions Recorded Confirmed Type No Known Home Medications 07/31/20 07/31/20 History Allergies Allergy/AdvReac Type Severity Reaction Status Date / Time metoclopramide HCl AdvReac Hallucinati Verified 07/31/20 13:31 [From [facility]] ons Exam - OBG Physical Exam Abdomen: bowel sounds normal, no diffuse tenderness, no bruit present, no guarding noted, no hepatomegaly, no splenomegaly, no mass Vulva: both: normal Vagina: normal moisture, no discharge Cervix: no lesion, no discharge Uterus: normal size, normal contour Results Transvaginal ultrasound done on June 08 showed a normal-appearing uterus and ovaries. Assessment and Plan Assessment: This is a pleasant 39-year-old 5 para 3 female with long-standing menorrhagia and normal evaluation requesting endometrial ablation. Plan is hysteroscopy, D&C, and NovaSure endometrial ablation. Patient understands this surgery and risks including risks of infection, bleeding, possible uterine perforation, and/or thermal injury. All the patient's questions are answered and a written consent is obtained. (1) Menorrhagia Status: Chronic Code(s): N92.0 - EXCESSIVE AND FREQUENT MENSTRUATION WITH REGULAR CYCLE SNOMED Code(s): 978962698
[~2020-08-02 05:47] MED LIST: DEXAMETHASONE SOD PHOSPHATE 4 MG/ML 1 ML VIAL IV ONE; LACTATED RINGERS 1,000 ML IV SCH; LIDOCAINE 1% (10MG/ML) FOR IV START INTRADERMA PRN; ONDANSETRON 4 MG/2 ML VIAL IVP ONE; Pre Op ABX Message 1 EACH MISC MISCELLANE ONE
[2020-08-02] MEDS ORDERED: LIDOCAINE 1% INJ 10MG/ML (20 ML MDV) ONE (06:53)
[2020-08-02] MEDS ORDERED: fentaNYL (PF) 50 MCG/ML 2 ML AMP ONE (06:53)
[2020-08-02] MEDS ORDERED: PROPOFOL 10 MG/ML 20 ML VIAL IV ONE (06:53)
[2020-08-02] MEDS ORDERED: MIDAZOLAM 2 MG/2 ML VIAL ONE (06:53)
[2020-08-02] MEDS ORDERED: KETOROLAC 15 MG/ML 1 ML VIAL ONE (06:53)
[2020-08-02 07:34] VITALS: RESP 16; TEMP 97.1
--- NOTE | 2020-08-02 07:36 | P.OP ---
Date of Procedure: 08/02/20 Preoperative Diagnosis: Menorrhagia Postoperative Diagnosis: Same Procedure(s) Performed: #1: Hysteroscopy. #2: Dilation and curettage. 3: NovaSure endometrial ablation Anesthesia: MAC Surgeon: Bulmaro Alexis Estimated Blood Loss (ml): 10 Urine output (ml): 25 Pathology: other (Uterine curettings) Condition: stable Disposition: PACU Indications for Procedure: Please see dictated H&P for intimate details of this patient's admission. Brief summary this is a 39-year-old 5 para 3 female long-standing menorrhagia requesting NovaSure endometrial ablation for treatment. Patient understands this surgery and risks including risks of infection, bleeding, possible uterine perforation, and/or thermal injury. All the patient's questions are answered written consent is obtained. Operative Findings: This patient normal appearing endometrial cavity Description of Procedure: This patient is taken to the operating room where she is laid in supine position. She subsequently goes general mask anesthesia without incident. With an adequate level of anesthesia she's placed in dorsal lithotomy position. She has a vaginal perineal prep and drape. Examination under anesthesia shows a retroverted uterus of normal size. I first drain the bladder for 25 mL of clear urine. Weighted speculum placed in the posterior vagina and the anterior lip of the cervix was grabbed with an Allis clamp. The cervix is then gently dilated and sounded to 9 cm. Gentle dilation cervix is then done to allow the hysteroscope easily and the uterine cavity. Using saline solution hysteroscopy is performed. Uterine cavity appears normal and the cavity length was measured at 6 cm. With this done the hysteroscope was removed cervix is dilated more to allow a small curette easily uterine cavity and gentle but thorough 4 quadrant curettage is then done. With this done the NovaSure device is opened and set at a length of [address] and opens up to a width of 4.7 cm. After passing the cavity integrity test, it is enabled at 155 W setting for 107 seconds. Uses then removed and appears to be intact. Hysteroscopy again is performed and the uterine cavity appears to be ablated up to the endocervix. This completed the procedure is ended. The Allis clamp and weighted speculum removed. All counts are correct 3. There are no complications. Patient is awakened from anesthesia and taken recovery room satisfactory condition.
[2020-08-02] MEDS ORDERED: HYDROmorphone 0.5 MG/0.5 ML SYRINGE IVP ONE ×2 (07:44→07:58)
[2020-08-02] MEDS ORDERED: ONDANSETRON 4 MG/2 ML VIAL ONE (09:59)
[2020-08-02] MEDS ORDERED: METOCLOPRAMIDE 5 MG/ML 2 ML VIAL ONE (10:00)
[2020-08-02] MEDS ORDERED: ONDANSETRON 4 MG/2 ML VIAL IVP ONE (10:03)
[2020-08-02] MEDS ORDERED: METOCLOPRAMIDE 5 MG/ML 2 ML VIAL IVP ONE (10:04)
[2020-08-02 10:19] VITALS: BP 107/69; PULSE 83
== END 2020-08-02 11:35 | disposition home or self-care (01) ==
LOC: OR 05:47
PROVIDERS: ATTEND Obstetrics & Gynecology
DX: N92.0 Excessive and frequent menstruation with regular cycle (principal); K21.9 Gastro-esophageal reflux disease without esophagitis; F41.9 Anxiety disorder, unspecified; F17.210 Nicotine dependence, cigarettes, uncomplicated; Z88.8 Allergy status to other drugs, medicaments and biological substances; Z79.899 Other long term (current) drug therapy; Z98.891 History of uterine scar from previous surgery
CPT/HCPCS: 81025; 88305; 58563; J2250; J1100; J2405; J2001; J3010; J1885; J2704; J1170

== ENCOUNTER → 2020-11-23 | Outpatient (CLI) | payer OTHER ==
[2020-11-23 18:56] LABS: Hemoglobin A1C 5.2 % (4.0-6.0)
[2020-11-24 02:19] LABS: African American GFR (CKD) 108.4 (60.0-200.0); Albumin 4.4 g/dL (3.80-4.90); Albumin/Globulin Ratio 2.1 (1.60-3.17); Anion Gap 9.5 mmol/L (4.00-12.00); Calcium 9.6 mg/dL (8.7-10.3); Carbon Dioxide 21.5 mmol/L (21.6-31.8); Chol/HDL Ratio 2.85; Globulin 2.1 g/dL (1.6-3.3); LDL Cholesterol,Calculated 90.2 mg/dL (0.0-131.0); Non-African American GFR(CKD) 93.5 (60.0-200.0); Potassium 4.4 mmol/L (3.5-5.5); Total Bilirubin 0.7 mg/dL (0.3-1.2); Total Protein 6.5 g/dL (6.2-8.2); VLDL Calculation 20.8 mg/dL (5.00-40.00)
== END | disposition home or self-care (01) ==
LOC: LABWHC1 08:27
PROVIDERS: ATTEND Internal Medicine
DX: E66.9 Obesity, unspecified (principal); R22.43 Localized swelling, mass and lump, lower limb, bilateral
CPT/HCPCS: 36415; 80053; 80061; 82672; 83036; 84144; 84439; 84443; 84481

== ENCOUNTER 2021-02-07 16:11 | Observation (INO) | payer OTHER ==
[2021-02-07] MEDS ORDERED: SODIUM CHLORIDE 0.9% 500 ML 500 ML IV STA (16:38)
--- NOTE | 2021-02-07 16:46 | ED ---
General Adult HPI - General Chief complaint: Chest Pain Stated complaint: chest pain Time Seen by Provider: 02/07/21 16:15 Source: patient, RN notes reviewed, old records reviewed Mode of arrival: ambulatory Limitations: no limitations - History of Present Illness Initial comments: This is a 40-year-old female who presents emergency Department complaining of epigastric fullness patient. Patient states it feels like a gas bubble and she has been burping since 1:00 when this started and only getting minimal relief. Patient states is a little tender in the epigastric region. Patient denies any difficulty breathing shortness of breath. The patient states the epigastric pain extends up into the chest a little. Patient denies any diabetes high blood pressure high cholesterol. Patient states she smoked but quit July. Patient denies any nausea vomiting diarrhea. He denies any recent fever chills or cough. Patient denies any lightheadedness or dizziness. Patient denies any palpitations. Patient denies any swelling legs or calf tenderness. - Related Data Home Medications Medication Instructions Recorded Confirmed No Known Home Medications 02/07/21 02/07/21 Allergies Allergy/AdvReac Type Severity Reaction Status Date / Time metoclopramide HCl AdvReac Hallucinati Verified 02/07/21 18:12 [From [facility]] ons Review of Systems ROS Statement: Those systems with pertinent positive or pertinent negative responses have been documented in the HPI. ROS Other: All systems not noted in ROS Statement are negative. Past Medical History Past Medical History: GERD/Reflux Additional Past Medical History / Comment(s): occasional palpitations History of Any Multi-Drug Resistant Organisms: None Reported Past Surgical History: Section Additional Past Surgical History / Comment(s): D&C. Past Anesthesia/Blood Transfusion Reactions: Previous Problems w/ Anesthesia, Postoperative Nausea & Vomiting (PONV) Additional Past Anesthesia/Blood Transfusion Reaction / Comment(s): Had some SOB waking up after last surgery. Past Psychological History: Anxiety Smoking Status: Current every day smoker Past Alcohol Use History: None Reported Past Drug Use History: None Reported - Past Family History Mother Family Medical History: No Reported History General Exam Limitations: no limitations Course Vital Signs 02/07/21 02/07/21 16:12 18:11 Temperature 97.6 F Pulse Rate 84 94 Respiratory 18 18 Rate Blood Pressure 126/79 122/89 O2 Sat by Pulse 99 98 Oximetry Medical Decision Making - Medical Decision Making EKG shows normal sinus rhythm at 82 bpm CA interval 236 dresses 74 QT interval 356 QTC is 4:15. Patient's EKG shows no ST segment elevation or depression. I spoke with Dr. Decker he wanted the patient admitted and started on antibiotics and he'll see the patient morning. - Lab Data Result diagrams: 02/07/21 16:59 02/07/21 16:59 Lab Results 02/07/21 02/07/21 02/07/21 Range/Units 16:59 16:59 16:59 WBC 7.1 (3.8-10.6) k/uL RBC 5.19 (3.80-5.40) m/uL Hgb 14.0 (11.4-16.0) gm/dL Hct 41.8 (34.0-46.0) % MCV 80.6 (80.0-100.0) fL MCH 27.0 (25.0-35.0) pg MCHC 33.5 (31.0-37.0) g/dL RDW 13.5 (11.5-15.5) % Plt Count 159 (150-450) k/uL MPV 11.0 Neutrophils % 63 % Lymphocytes % 29 % Monocytes % 5 % Eosinophils % 1 % Basophils % 0 % Neutrophils # 4.5 (1.3-7.7) k/uL Lymphocytes # 2.1 (1.0-4.8) k/uL Monocytes # 0.3 (0-1.0) k/uL Eosinophils # 0.1 (0-0.7) k/uL Basophils # 0.0 (0-0.2) k/uL PT 9.9 (9.0-12.0) sec INR 0.9 (<1.2) APTT 22.9 (22.0-30.0) sec Sodium 140 (137-145) mmol/L Potassium 4.1 (3.5-5.1) mmol/L Chloride 106 (98-107) mmol/L Carbon Dioxide 26 (22-30) mmol/L Anion Gap 8 mmol/L BUN 13 (7-17) mg/dL Creatinine 0.76 (0.52-1.04) mg/dL Est GFR (CKD-EPI)AfAm >90 (>60 ml/min/1.73 sqM) Est GFR (CKD-EPI)NonAf >90 (>60 ml/min/1.73 sqM) Glucose 105 H (74-99) mg/dL Calcium 9.7 (8.4-10.2) mg/dL Magnesium 2.1 (1.6-2.3) mg/dL Total Bilirubin 0.7 (0.2-1.3) mg/dL AST 217 H (14-36) U/L ALT 132 H (4-34) U/L Alkaline Phosphatase 133 H (38-126) U/L Troponin I (0.000-0.034) ng/mL Total Protein 7.1 (6.3-8.2) g/dL Albumin 4.3 (3.5-5.0) g/dL Amylase 76 (30-110) U/L 02/07/21 Range/Units 16:59 WBC (3.8-10.6) k/uL RBC (3.80-5.40) m/uL Hgb (11.4-16.0) gm/dL Hct (34.0-46.0) % MCV (80.0-100.0) fL MCH (25.0-35.0) pg MCHC (31.0-37.0) g/dL RDW (11.5-15.5) % Plt Count (150-450) k/uL MPV Neutrophils % % Lymphocytes % % Monocytes % % Eosinophils % % Basophils % % Neutrophils # (1.3-7.7) k/uL Lymphocytes # (1.0-4.8) k/uL Monocytes # (0-1.0) k/uL Eosinophils # (0-0.7) k/uL Basophils # (0-0.2) k/uL PT (9.0-12.0) sec INR (<1.2) APTT (22.0-30.0) sec Sodium (137-145) mmol/L Potassium (3.5-5.1) mmol/L Chloride (98-107) mmol/L Carbon Dioxide (22-30) mmol/L Anion Gap mmol/L BUN (7-17) mg/dL Creatinine (0.52-1.04) mg/dL Est GFR (CKD-EPI)AfAm (>60 ml/min/1.73 sqM) Est GFR (CKD-EPI)NonAf (>60 ml/min/1.73 sqM) Glucose (74-99) mg/dL Calcium (8.4-10.2) mg/dL Magnesium (1.6-2.3) mg/dL Total Bilirubin (0.2-1.3) mg/dL AST (14-36) U/L ALT (4-34) U/L Alkaline Phosphatase (38-126) U/L Troponin I <0.012 (0.000-0.034) ng/mL Total Protein (6.3-8.2) g/dL Albumin (3.5-5.0) g/dL Amylase (30-110) U/L Disposition Clinical Impression: Cholecystitis, acute with cholelithiasis Disposition: ADMITTED IP TO THIS [facility] Referrals: Chris Keene MD [Primary Care Provider] - 1-2 days Time of Disposition: 18:49
[2021-02-07 17:20] LABS: Basophils % (A) 0 %; Eosinophils # (A) 0.1 k/uL (0-0.7); Eosinophils % (A) 1 %; HCT 41.8 % (34.0-46.0); Lymphocytes # (A) 2.1 k/uL (1.0-4.8); Lymphocytes % (A) 29 %; MCHC 33.5 g/dL (31.0-37.0); MCV 80.6 fL (80.0-100.0); Monocytes # (A) 0.3 k/uL (0-1.0); Monocytes % (A) 5 %; Neutrophils # (A) 4.5 k/uL (1.3-7.7); Neutrophils % (A) 63 %; Platelet Count 159 k/uL (150-450); RBC 5.19 m/uL (3.80-5.40); RDW 13.5 % (11.5-15.5); WBC 7.1 k/uL (3.8-10.6)
[2021-02-07 17:26] LABS: INR 0.9 (<1.2); Partial Thromboplastin Time 22.9 sec (22.0-30.0); Prothrombin Time 9.9 sec (9.0-12.0)
[2021-02-07 17:28] LABS: ALT 132 U/L (4-34); AST 217 U/L (14-36); African American GFR (CKD) >90 (>60 ml/min/1.73 sqM); Albumin 4.3 g/dL (3.5-5.0); Alkaline Phosphatase 133 U/L (38-126); Amylase 76 U/L (30-110); Anion Gap 8 mmol/L; Blood Urea Nitrogen 13 mg/dL (7-17); Calcium 9.7 mg/dL (8.4-10.2); Carbon Dioxide 26 mmol/L (22-30); Chloride 106 mmol/L (98-107); Glucose 105 mg/dL (74-99); Magnesium 2.1 mg/dL (1.6-2.3); Non-African American GFR(CKD) >90 (>60 ml/min/1.73 sqM); Potassium 4.1 mmol/L (3.5-5.1); Sodium 140 mmol/L (137-145); Total Bilirubin 0.7 mg/dL (0.2-1.3); Total Protein 7.1 g/dL (6.3-8.2)
--- NOTE | 2021-02-07 17:58 | XR ---
EXAMINATION TYPE: XR chest 2V DATE OF EXAM: 02/07/2021 COMPARISON: 04/21/2014. HISTORY: Chest pain. TECHNIQUE: Frontal and lateral views of the chest are obtained. FINDINGS: There is no focal air space opacity, pleural effusion, or pneumothorax seen. The cardiac silhouette size is within normal limits. The osseous structures are intact. IMPRESSION: No acute cardiopulmonary process.
--- NOTE | 2021-02-07 18:20 | US ---
EXAMINATION TYPE: US gallbladder DATE OF EXAM: 02/07/2021 COMPARISON: CT 05/29/2012. CLINICAL HISTORY: pain. EXAM MEASUREMENTS: Liver Length: 14.6 cm Gallbladder Wall: 0.29 cm CBD: 0.53 cm Right Kidney: 10.6 x 4.4 x 4.6 cm Limited due to gas and patient body habitus. Pancreas: Tail partially obscured by gas. Liver: Appears to have a slightly increased echogenicity. Gallbladder: Multiple hyperechoic foci with twinkle artifact and posterior shadowing seen within the gallbladder, consistent with stones. Wall measures upper limits of normal. Evidence for sonographic Mauro's sign: Patient feels discomfort in RUQ and epigastric area. CBD: Portions seen appear to be wnl. Right Kidney: No hydronephrosis or masses seen IMPRESSION: Cholelithiasis without sonographic evidence of inflammation. However reported positive so nographic Mauro's sign which is equivocal for acute cholecystitis.
[2021-02-07] MEDS ORDERED: SODIUM CHLORIDE 0.9% 1,000 ML IV ONE (18:49)
[2021-02-07] MEDS ORDERED: ONDANSETRON 4 MG/2 ML VIAL IVP PRN (18:50)
[2021-02-07] MEDS: PIPERACILLIN-TAZOBACTAM 3.375 GM in SODIUM CHLORIDE 0.9% 100 ML IVPB SCH (20:03)
[2021-02-08] MEDS: PIPERACILLIN-TAZOBACTAM 3.375 GM in SODIUM CHLORIDE 0.9% 100 ML IVPB SCH ×3 (03:11→20:38)
[2021-02-08 08:58] LABS: ALT 294 U/L (4-34); AST 259 U/L (14-36); African American GFR (CKD) >90 (>60 ml/min/1.73 sqM); Albumin 3.8 g/dL (3.5-5.0); Albumin/Globulin Ratio 1.4; Alkaline Phosphatase 124 U/L (38-126); Anion Gap 5 mmol/L; Blood Urea Nitrogen 9 mg/dL (7-17); Calcium 8.8 mg/dL (8.4-10.2); Carbon Dioxide 20 mmol/L (22-30); Chloride 111 mmol/L (98-107); Globulin 2.7 g/dL; Glucose 83 mg/dL (74-99); Non-African American GFR(CKD) >90 (>60 ml/min/1.73 sqM); Potassium 4.4 mmol/L (3.5-5.1); Sodium 136 mmol/L (137-145); Total Protein 6.5 g/dL (6.3-8.2)
[2021-02-08 09:33] LABS: Basophils % (A) 0 %; Eosinophils # (A) 0.1 k/uL (0-0.7); Eosinophils % (A) 1 %; HCT 41.6 % (34.0-46.0); HGB 13.8 gm/dL (11.4-16.0); Lymphocytes # (A) 1.6 k/uL (1.0-4.8); Lymphocytes % (A) 31 %; MCH 27.4 pg (25.0-35.0); MCHC 33.2 g/dL (31.0-37.0); MCV 82.5 fL (80.0-100.0); Mean Platelet Volume 10.7; Monocytes # (A) 0.3 k/uL (0-1.0); Monocytes % (A) 5 %; Neutrophils # (A) 3.2 k/uL (1.3-7.7); Neutrophils % (A) 61 %; Platelet Count 136 k/uL (150-450); RBC 5.04 m/uL (3.80-5.40); RDW 13.7 % (11.5-15.5); WBC 5.2 k/uL (3.8-10.6)
--- NOTE | 2021-02-08 11:47 | P.GSHP ---
History of Present Illness H&P Date: 02/08/21 CHIEF COMPLAINT: Abdominal pain HISTORY OF PRESENT ILLNESS: This is a 40-year-old female with a known history of GERD and . She presented to the emergency room with complaints of epigastric abdominal pain that started around 1:00 yesterday afternoon after eating [employer]. She rates her pain about a 10 out of 10. She did have severe nausea. No actual vomiting. After a few hours pain did subside but then again around 5:00 PM she had similar symptoms and decided to come into the em ergency room for further evaluation. Patient reports that her pain is now better. She denies any fever chills or sweats. Denies any urinary symptoms. She has had a couple occasional episodes of diarrhea. Abdominal ultrasound shows cholelithiasis without evidence of inflammation. However positive Mauro sign which is equivocal for acute cholecystitis. Patient started on IV antibiotics. She does have elevated LFTs. PAST MEDICAL HISTORY: See list. PAST SURGICAL HISTORY: See list. MEDICATIONS: See list. ALLERGIES: See list. SOCIAL HISTORY: No illicit drug use. REVIEW OF SYSTEMS: CONSTITUTIONAL: Denies fever or chills. HEENT: Denies blurred vision, vision changes, or eye pain. Denies hemoptysis CARDIOVASCULAR: Denies chest pain or pressure. RESPIRATORY: No shortness of breath. GASTROINTESTINAL: See HPI for pertinent findings HEMATOLOGIC: Denies bleeding disorders. GENITOURINARY: Denies any blood in urine or increased urinary frequency. SKIN: Denies pruitis. Denies rash. PHYSICAL EXAM: VITAL SIGNS: Reviewed GENERAL: Well-developed in no acute distress. HEENT: No sclera icterus. Extraocular movements grossly intact. Moist buccal mucosa. Head is atraumatic, normocephalic. No nasal drainage. ABDOMEN: Soft. Nondistended. Nontender NEUROLOGIC: Alert and oriented. Cranial nerves II through XII grossly intact. LABORATORY DATA: WBC is 5.2 hemoglobin 13.8 platelets 136 sodium 136 potassium 4.4 BUN 9 creatinine 0.68 AST 217 up to 259 ALT 132 up to 294 alk phos 133 normalized to 124 total bilirubin 1.0 Lipase is normal COVID-19 not detected IMAGING: Abdominal ultrasound shows cholelithiasis without evidence of inflammation. However positive Mauro sign which is equivocal for acute cholecystitis. ASSESSMENT: 1. Acute cholecystitis 2. Elevated LFTs PLAN: -Patient scheduled for laparoscopic cholecystectomy today with Dr. loya -Keep patient nothing by mouth -Continue IV fluids -Medicine on consult for medical management Physician Diplomatic Interpreter/Translator note has been reviewed by physician. Signing provider agrees with the documented findings, assessment, and plan of care. Past Medical History Past Medical History: GERD/Reflux Additional Past Medical History / Comment(s): occasional palpitations History of Any Multi-Drug Resistant Organisms: None Reported Past Surgical History: Section Additional Past Surgical History / Comment(s): D&C. Past Anesthesia/Blood Transfusion Reactions: Previous Problems w/ Anesthesia, Postoperative Nausea & Vomiting (PONV) Additional Past Anesthesia/Blood Transfusion Reaction / Comment(s): Had some SOB waking up after last surgery. Past Psychological History: Anxiety Smoking Status: Former smoker Past Alcohol Use History: None Reported Additional Past Alcohol Use History / Comment(s): Has smoked off & on since teens. Past Drug Use History: None Reported - Past Family History Mother Family Medical History: No Reported History Medications and Allergies Home Medications Medication Instructions Recorded Confirmed Type No Known Home Medications 02/07/21 02/07/21 History Allergies Allergy/AdvReac Type Severity Reaction Status Date / Time metoclopramide HCl AdvReac Hallucinati Verified 02/07/21 18:12 [facility] ons Surgical - Exam Vital Signs Temp Pulse Resp BP Pulse Ox 97.6 F 84 18 126/79 99 02/07/21 16:12 02/07/21 16:12 02/07/21 16:12 02/07/21 16:12 02/07/21 16:12 Results - Labs 02/08/21 08:20 02/08/21 08:20 Abnormal Lab Results - Last 24 Hours (Table) 02/07/21 02/08/21 02/08/21 Range/Units 16:59 08:20 08:20 Plt Count 136 L (150-450) k/uL Sodium 136 L (137-145) mmol/L Chloride 111 H (98-107) mmol/L Carbon Dioxide 20 L (22-30) mmol/L Glucose 105 H (74-99) mg/dL AST 217 H 259 H (14-36) U/L ALT 132 H 294 H (4-34) U/L Alkaline Phosphatase 133 H (38-126) U/L Diabetes panel 02/07/21 02/08/21 Range/Units 16:59 08:20 Sodium 140 136 L (137-145) mmol/L Potassium 4.1 4.4 (3.5-5.1) mmol/L Chloride 106 111 H (98-107) mmol/L Carbon Dioxide 26 20 L (22-30) mmol/L BUN 13 9 (7-17) mg/dL Creatinine 0.76 0.68 (0.52-1.04) mg/dL Glucose 105 H 83 (74-99) mg/dL Calcium 9.7 8.8 (8.4-10.2) mg/dL AST 217 H 259 H (14-36) U/L ALT 132 H 294 H (4-34) U/L Alkaline Phosphatase 133 H 124 (38-126) U/L Total Protein 7.1 6.5 (6.3-8.2) g/dL Albumin 4.3 3.8 (3.5-5.0) g/dL Calcium panel 02/07/21 02/08/21 Range/Units 16:59 08:20 Calcium 9.7 8.8 (8.4-10.2) mg/dL Albumin 4.3 3.8 (3.5-5.0) g/dL Pituitary panel 02/07/21 02/08/21 Range/Units 16:59 08:20 Sodium 140 136 L (137-145) mmol/L Potassium 4.1 4.4 (3.5-5.1) mmol/L Chloride 106 111 H (98-107) mmol/L Carbon Dioxide 26 20 L (22-30) mmol/L BUN 13 9 (7-17) mg/dL Creatinine 0.76 0.68 (0.52-1.04) mg/dL Glucose 105 H 83 (74-99) mg/dL Calcium 9.7 8.8 (8.4-10.2) mg/dL Adrenal panel 02/07/21 02/08/21 Range/Units 16:59 08:20 Sodium 140 136 L (137-145) mmol/L Potassium 4.1 4.4 (3.5-5.1) mmol/L Chloride 106 111 H (98-107) mmol/L Carbon Dioxide 26 20 L (22-30) mmol/L BUN 13 9 (7-17) mg/dL Creatinine 0.76 0.68 (0.52-1.04) mg/dL Glucose 105 H 83 (74-99) mg/dL Calcium 9.7 8.8 (8.4-10.2) mg/dL Total Bilirubin 0.7 1.0 (0.2-1.3) mg/dL AST 217 H 259 H (14-36) U/L ALT 132 H 294 H (4-34) U/L Alkaline Phosphatase 133 H 124 (38-126) U/L Total Protein 7.1 6.5 (6.3-8.2) g/dL Albumin 4.3 3.8 (3.5-5.0) g/dL
[2021-02-08] MEDS: SODIUM CHLORIDE 0.9% 1,000 ML IV SCH ×2 (13:07→18:28)
--- NOTE | 2021-02-08 14:51 | P.CONS ---
History of Present Illness - Reason for Consult Epigastric pain - History of Present Illness Patient is a pleasant 32-year-old female came in with complaints of retrosternal burning sensation severe retrosternal burning sensation in was predominantly in the epigastric area and retrosternal area. The pain started after eating the food from [employer]. Patient pain presently resolved. Patient had abdominal ultrasound which showed cholelithiasis. It was read as acute cholecystitis cannot be ruled out. Patient was admitted to general surgery service and IV antibiotics were started. Patient was complaining of nausea Review of Systems REVIEW OF SYSTEMS: CONSTITUTIONAL: No fever, no malaise, no fatigue. HEENT: No recent visual problems or hearing problems. Denied any sore throat. CARDIOVASCULAR: No chest pain, orthopnea, PND, no palpitations, no syncope. PULMONARY: No shortness of breath, no cough, no hemoptysis. GASTROINTESTINAL: As mentioned in HPI NEUROLOGICAL: No headaches, no weakness, no numbness. HEMATOLOGICAL: Denies any bleeding or petechiae. GENITOURINARY: Denies any burning micturition, frequency, or urgency. MUSCULOSKELETAL/RHEUMATOLOGICAL: Denies any joint pain, swelling, or any muscle pain. ENDOCRINE: Denies any polyuria or polydipsia. The rest of the 14-point review of systems is negative. Past Medical History Past Medical History: GERD/Reflux Additional Past Medical History / Comment(s): occasional palpitations History of Any Multi-Drug Resistant Organisms: None Reported Past Surgical History: Section Additional Past Surgical History / Comment(s): D&C. Past Anesthesia/Blood Transfusion Reactions: Previous Problems w/ Anesthesia, Postoperative Nausea & Vomiting (PONV) Additional Past Anesthesia/Blood Transfusion Reaction / Comm: Had some SOB waking up after last surgery. Past Psychological History: Anxiety Smoking Status: Former smoker Past Alcohol Use History: None Reported Additional Past Alcohol Use History / Comment(s): Has smoked off & on since teens. Past Drug Use History: None Reported - Past Family History Mother Family Medical History: No Reported History Medications and Allergies Home Medications Medication Instructions Recorded Confirmed Type No Known Home Medications 02/07/21 02/07/21 History Allergies Allergy/AdvReac Type Severity Reaction Status Date / Time metoclopramide HCl AdvReac Hallucinati Verified 02/07/21 18:12 [From Reglan] ons Physical Exam Vitals: Vital Signs Temp Pulse Pulse Resp BP BP Pulse Ox 02/08/21 11:33 98.6 F 80 12 116/69 98 02/08/21 04:35 98.2 F 94 16 109/61 98 02/07/21 21:05 98.4 F 97 16 125/84 98 02/07/21 18:11 94 18 122/89 98 02/07/21 16:12 97.6 F 84 18 126/79 99 Intake and Output 02/07/21 02/08/21 02/08/21 22:59 06:59 14:59 Other: Voiding Method Toilet # Voids 1 Weight 86.183 kg PHYSICAL EXAMINATION: GENERAL: The patient is alert and oriented x3, not in any acute distress. Well developed, well nourished. HEENT: Pupils are round and equally reacting to light. EOMI. No scleral icterus. No conjunctival pallor. Normocephalic, atraumatic. No pharyngeal erythema. No thyromegaly. CARDIOVASCULAR: S1 and S2 present. No murmurs, rubs, or gallops. PULMONARY: Chest is clear to auscultation, no wheezing or crackles. ABDOMEN: Soft, nontender, nondistended, normoactive bowel sounds. No palpable organomegaly. MUSCULOSKELETAL: No joint swelling or deformity. EXTREMITIES: No cyanosis, clubbing, or pedal edema. NEUROLOGICAL: Gross neurological examination did not reveal any focal deficits. SKIN: No rashes. Results CBC & Chem 7: 02/08/21 08:20 02/08/21 08:20 Labs: Abnormal Lab Results - Last 24 Hours (Table) 02/07/21 02/08/21 02/08/21 Range/Units 16:59 08:20 08:20 Plt Count 136 L (150-450) k/uL Sodium 136 L (137-145) mmol/L Chloride 111 H (98-107) mmol/L Carbon Dioxide 20 L (22-30) mmol/L Glucose 105 H (74-99) mg/dL AST 217 H 259 H (14-36) U/L ALT 132 H 294 H (4-34) U/L Alkaline Phosphatase 133 H (38-126) U/L Assessment and Plan Plan: -Possible gastritis or peptic ulcer disease: Patient will be started on Protonix -Cholelithiasis: Denies surgeries evaluated the patient for possibility of cholecystitis patient was started on antibiotics by general surgery.
[2021-02-08] MEDS ORDERED: IV FLUID CONTINUATION 400 ML IV ONE (15:39)
[2021-02-08] MEDS ORDERED: HEPARIN SODIUM,PORCINE/PF 5,000 UNIT/0.5 ML SYRINGE SQ ONE (15:40)
[2021-02-08] MEDS ORDERED: SCOPOLAMINE 1.5MG/72HR PATCH TRANSDERM ONE (15:42)
[2021-02-08] MEDS ORDERED: ONDANSETRON 4 MG/2 ML VIAL IVP ONE (15:42)
[2021-02-08] MEDS ORDERED: DEXAMETHASONE SOD PHOSPHATE 4 MG/ML 1 ML VIAL IVP ONE (15:43)
[2021-02-08] MEDS ORDERED: SUCCINYLCHOLINE CHLORIDE 100 MG/5 ML SYR IV ONE (16:14)
[2021-02-08] MEDS ORDERED: GLYCOPYRROLATE 0.2 MG/ML 2 ML VIAL ONE (16:14)
[2021-02-08] MEDS ORDERED: NEOSTIGMINE 1 MG/ML 10 ML VIAL ONE (16:14)
[2021-02-08] MEDS ORDERED: MIDAZOLAM 2 MG/2 ML VIAL ONE (16:14)
[2021-02-08] MEDS ORDERED: fentaNYL (PF) 50 MCG/ML 2 ML AMP ONE (16:14)
[2021-02-08] MEDS ORDERED: PROPOFOL 10 MG/ML 20 ML VIAL IV ONE (16:14)
[2021-02-08] MEDS ORDERED: LIDOCAINE 1% INJ 10MG/ML (20 ML MDV) ONE (16:14)
[2021-02-08] MEDS ORDERED: ROCURONIUM 10 MG/ML (5 ML VIAL) IV ONE (16:14)
[2021-02-08] MEDS ORDERED: KETOROLAC 15 MG/ML 1 ML VIAL ONE (16:14)
[2021-02-08] MEDS ORDERED: BUPIVACAIN-EPI 0.5%-1:200,000 30 ML VIAL SQ ONE ×2 (16:15→16:31)
[2021-02-08] MEDS ORDERED: HEPARIN SODIUM,PORCINE 5,000 UNIT/ML 1 ML VIAL SQ ONE (16:16)
[2021-02-08] MEDS ORDERED: LACTATED RINGERS 1,000 ML IV ONE (16:36)
--- NOTE | 2021-02-08 16:52 | P.OP ---
Date of Procedure: 02/08/21 Preoperative Diagnosis: Cholecystitis Postoperative Diagnosis: Cholecystitis Procedure(s) Performed: Laparoscopic cholecystectomy Anesthesia: MAGDA Surgeon: Keshawn Decker Pathology: other (Gallbladder) Condition: stable Disposition: PACU Description of Procedure: The patient was placed on the operating table. The patient received a general endotracheal tube anesthesia. The patients abdomen was prepped and draped in the usual sterile fashion. Through an infraumbilical stab incision, the fascia of the anterior abdominal wall was grasped with a pair of Kochers and then the Veress needle was placed in the peritoneal cavity. Position of the Veress needle was confirmed with positive drop test. The abdomen was then insufflated. After adequate insufflation, the 10 mm trocar was placed in the peritoneal cavity. Following this the laparoscope was placed in the peritoneal cavity. The patient was placed in the head-up, right side up position and then a 5 mm trocar was placed in the right lateral and right subcostal position under direct visualization. A 8 mm trocar was placed in the epigastric position. The gallbladder was grasped in the fundus and infundibulum. Traction on the gallbladder was placed in the lateral and the cephalad positions. The triangle of Calot was visualized.. The cystic duct was bluntly dissected until the union of the cystic duct and common bile duct was seen. A critical view of safety was achieved. The cystic duct was then divided and sealed with the Harmonic scissors. A PDS Endoloop was then placed throughout the cystic duct stump. The cystic artery divided and sealed with the Harmonic scissors. The gallbladder was then removed from the liver bed using Harmonic scissors. The gallbladder was then extracted through the epigastric port site. Operative field was checked for any bleeding spots and Harmonic scissors was used to coagulate the liver bed. The abdomen was irrigated. The trocars were removed. The skin was closed using interrupted 3-0 Vicryl suture. Dermabond dressing were applied. The patient tolerated the procedure well.
[2021-02-08] MEDS ORDERED: HYDROmorphone 1 MG/ML 1 ML SYRINGE IVP ONE ×2 (17:04→17:09)
[2021-02-08] MEDS: PANTOPRAZOLE 40 MG/10 ML VIAL IVP SCH (18:21)
[2021-02-08] MEDS: HYDROmorphone 0.5 MG/0.5 ML SYRINGE IVP PRN (21:54)
[2021-02-09] MEDS: PIPERACILLIN-TAZOBACTAM 3.375 GM in SODIUM CHLORIDE 0.9% 100 ML IVPB SCH ×2 (04:35→13:05)
[2021-02-09] MEDS: HYDROmorphone 0.5 MG/0.5 ML SYRINGE IVP PRN (07:20)
[2021-02-09] MEDS: PANTOPRAZOLE 40 MG/10 ML VIAL IVP SCH (07:20)
[2021-02-09] MEDS ORDERED: ENOXAPARIN 40 MG/0.4 ML SYRINGE SQ SCH (09:00)
[2021-02-09] MEDS: SODIUM CHLORIDE 0.9% 1,000 ML IV SCH (09:08)
[2021-02-09 09:38] LABS: Basophils % (A) 0 %; Eosinophils % (A) 0 %; HCT 37.8 % (34.0-46.0); HGB 12.3 gm/dL (11.4-16.0); Lymphocytes # (A) 1.6 k/uL (1.0-4.8); Lymphocytes % (A) 17 %; MCH 26.9 pg (25.0-35.0); MCHC 32.6 g/dL (31.0-37.0); MCV 82.6 fL (80.0-100.0); Mean Platelet Volume 10.6; Monocytes # (A) 0.4 k/uL (0-1.0); Monocytes % (A) 4 %; Neutrophils # (A) 7.1 k/uL (1.3-7.7); Neutrophils % (A) 77 %; Platelet Count 154 k/uL (150-450); RBC 4.57 m/uL (3.80-5.40); RDW 13.7 % (11.5-15.5); WBC 9.1 k/uL (3.8-10.6)
[2021-02-09 09:49] LABS: ALT 174 U/L (4-34); AST 86 U/L (14-36); African American GFR (CKD) >90 (>60 ml/min/1.73 sqM); Albumin 3.5 g/dL (3.5-5.0); Albumin/Globulin Ratio 1.3; Alkaline Phosphatase 104 U/L (38-126); Anion Gap 6 mmol/L; Blood Urea Nitrogen 9 mg/dL (7-17); Calcium 8.6 mg/dL (8.4-10.2); Carbon Dioxide 22 mmol/L (22-30); Chloride 109 mmol/L (98-107); Globulin 2.7 g/dL; Glucose 86 mg/dL (74-99); Non-African American GFR(CKD) >90 (>60 ml/min/1.73 sqM); Potassium 4.1 mmol/L (3.5-5.1); Sodium 137 mmol/L (137-145); Total Bilirubin 1.2 mg/dL (0.2-1.3); Total Protein 6.2 g/dL (6.3-8.2)
[2021-02-09] MEDS ORDERED: BENZOCAINE/MENTHOL LOZENG 1 EACH LOZENGE MUCOUS MEM PRN (11:39)
[2021-02-09 12:16] VITALS: BP 111/71; PULSE 60; RESP 14; TEMP 98.2
[2021-02-09] MEDS: HYDROcodone/APAP 5-325MG 1 EACH TAB PO PRN ×2 (13:04→16:23)
--- NOTE | 2021-02-09 13:11 | P.DS ---
Providers Date of admission: 02/07/21 18:49 Expected date of discharge: 02/09/21 Attending physician: Keshawn Decker Consults: 02/08/21 08:22 Consult Physician Routine Consulting Provider: Mau Logan Consult Reason/Comments: Management Do you want consulting provider notified?: Yes Primary care physician: Yecenia Perez [facility] Course: Discharge diagnosis 1. Cholecystitis status post laparoscopic cholecystectomy 2. Possible Choledocholithiasis. Elevated LFTs trending down. Patient possibly passed a gallstone Hospital course This is a 40-year-old female with a known history of GERD and . She presented to the emergency room with complaints of epigastric abdominal pain that started around 1:00 yesterday afternoon after eating [employer]. She rates her pain about a 10 out of 10. She did have severe nausea. No actual vomiting. After a few hours pain did subside but then again around 5:00 PM she had similar symptoms and decided to come into the emergency room for further evaluation. Abdominal ultrasound shows cholelithiasis without evidence of inflammation. However positive Mauro sign which is equivocal for acute cholecystitis. Patient started on IV antibiotics. She does have elevated LFTs. Patient is status post laparoscopic cholecystectomy. She tolerated surgery well. Her pain is controlled. She is tolerating diet. She's having flatus. She is up and ambulating. She is afebrile. She is stable for discharge. Please refer to chart for any further details. Physician Developer Designer note has been reviewed by physician. Signing provider agrees with the documented findings, assessment, and plan of care. Patient Condition at Discharge: Stable Plan - Discharge Summary New Discharge Prescriptions: New HYDROcodone/APAP 5-325MG [Call 5-325] 1 tab PO Q6HR PRN 3 Days #12 tab PRN Reason: Pain Discharge Medication List HYDROcodone/APAP 5-325MG [Call 5-325] 1 tab PO Q6HR PRN 3 Days #12 tab 02/09/21 [Rx] Follow up Appointment(s)/Referral(s): Chris Keene MD [Primary Care Provider] - 1-2 days Keshawn Decker MD [STAFF PHYSICIAN] - 1 Week Activity/Diet/Wound Care/Special Instructions: No driving while taking Call No lifting over 10 pounds You may shower. No soaking or tub baths for 2 weeks Very light activity until you are reevaluated at your follow up appointment with your surgeon Discharge Disposition: HOME SELF-CARE
--- NOTE | 2021-02-09 15:33 | P.PN ---
Subjective Progress Note Date: 02/09/21 - Reason for Consult Epigastric pain - History of Present Illness Patient is a pleasant 32-year-old female came in with complaints of retrosternal burning sensation severe retrosternal burning sensation in was predominantly in the epigastric area and retrosternal area. The pain started after eating the food from [employer]. Patient pain presently resolved. Patient had abdominal ultrasound which showed cholelithiasis. It was read as acute cholecystitis cannot be ruled out. Patient was admitted to general surgery service and IV antibiotics were started. Patient was complaining of nausea 02/09/2021 Patient is seen and evaluated in follow-up this morning with no acute overnight issues. Patient is tolerating diet with no further reports of nausea or vomiting noted. Patient Objective - Vital Signs Vital signs: Vital Signs Temp 98 F 02/09/21 05:00 Pulse 58 L 02/09/21 05:00 Resp 16 02/09/21 05:00 BP 120/71 02/09/21 05:00 Pulse Ox 98 02/09/21 05:00 Intake & Output 02/08/21 02/09/21 02/09/21 18:59 06:59 18:59 Intake Total 1400 900 Output Total 55 Balance 1345 900 Intake: IV 600 Intake, IV Titration 800 900 Amount Piperacillin-Tazobactam 3 100 .375 gm In Sodium Chloride 0.9% 100 ml @ 25 mls/hr IVPB Q8H JEF Rx#: [id number] Sodium Chloride 0.9% 1, 800 800 000 ml @ 100 mls/hr IV . Q10H JEF Rx#:[id number] Output: Emesis 50 Estimated Blood Loss 5 Other: Voiding Method Toilet # Voids 3 2 - Exam GENERAL: The patient is alert and oriented x3, not in any acute distress. Well developed, well nourished. HEENT: Pupils are round and equally reacting to light. EOMI. No scleral icterus. No conjunctival pallor. Normocephalic, atraumatic. No pharyngeal erythema. No thyromegaly. CARDIOVASCULAR: S1 and S2 present. No murmurs, rubs, or gallops. PULMONARY: Chest is clear to auscultation, no wheezing or crackles. ABDOMEN: Soft, mildly tender in the right upper quadrant underneath the rib cage, nondistended, normoactive bowel sounds. No palpable organomegaly. MUSCULOSKELETAL: No joint swelling or deformity. EXTREMITIES: No cyanosis, clubbing, or pedal edema. NEUROLOGICAL: Gross neurological examination did not reveal any focal deficits. SKIN: No rashes. - Labs CBC & Chem 7: 02/09/21 08:41 02/09/21 08:41 Labs: Abnormal Lab Results - Last 24 Hours (Table) 02/09/21 Range/Units 08:41 Chloride 109 H (98-107) mmol/L AST 86 H (14-36) U/L ALT 174 H (4-34) U/L Total Protein 6.2 L (6.3-8.2) g/dL Assessment and Plan Assessment: -Possible gastritis or peptic ulcer disease: Patient will be started on Protonix -Cholelithiasis: Denies surgeries evaluated the patient for possibility of cholecystitis patient was started on antibiotics by general surgery. -Status post cholecystectomy postop day #1 Plan: Patient is seen and evaluated in follow-up this morning status post cholecystectomy and is currently tolerating diet with no further reports of nausea or vomiting noted. Patient has continued right upper quadrant tenderness and discomfort up in her rib cage although denies chest pain or shortness of breath. Patient denies passing gas and has not had a bowel movement. Will add incentive spirometer and encourage the patient increase activity and get up and walk more often. Will continue to follow during hospitalization and patient is anticipating possible discharge this afternoon. Repeat labs today within normal limits and liver functions are trending down recommending close outpatient follow-up with repeat labs.
== END 2021-02-09 17:40 | disposition home or self-care (01) ==
LOC: EC 16:11 → 5NMEDONC 18:49
PROVIDERS: ADMIT Surgery; ATTEND Surgery
DX: K80.00 Calculus of gallbladder with acute cholecystitis without obstruction (principal); R79.89 Other specified abnormal findings of blood chemistry; K21.9 Gastro-esophageal reflux disease without esophagitis; F41.9 Anxiety disorder, unspecified; R00.2 Palpitations; Z87.891 Personal history of nicotine dependence; Z88.8 Allergy status to other drugs, medicaments and biological substances
CPT/HCPCS: 47562; 96366 ×2; 96365; 99285; 36415; 93005; 88304; 80053 ×3; 82150; 83690; 83735; 84484; 85025 ×3; 85610; 85730; 84703; 87635; 71046; 76705; G0378 ×3; J2543 ×3; J2250; J1644; J1100; J2710; J2405; J2001; J1650; J3010; J1170 ×3; J1885; J0330; J2704; C9113 ×2

== ENCOUNTER → 2021-02-12 | Outpatient (CLI) | payer OTHER ==
[2021-02-12 14:50] LABS: ALT 131 U/L (8-44); AST 56 U/L (13-35)
== END | disposition home or self-care (01) ==
LOC: LABWHC1 09:43
PROVIDERS: ATTEND Registered Nurse
DX: R94.5 Abnormal results of liver function studies (principal)
CPT/HCPCS: 36415; 84450; 84460

== ENCOUNTER → 2021-02-21 | Outpatient (CLI) | payer OTHER ==
[2021-02-22 01:41] LABS: HCT 41.2 % (37.2-46.3); HGB 9.5 g/dL (12.0-15.0); MCH 19.8 pg (27.0-32.0); MCHC 23.1 g/dL (32.0-37.0); Mean Platelet Volume 13.5 fL (9.5-12.2); Platelet Count 182 X 10*3/uL (140-440); RBC 4.79 X 10*6/uL (4.10-5.20); RDW 14.3 % (11.5-14.5)
[2021-02-22 20:29] LABS: African American GFR (CKD) 108.4 (60.0-200.0); Albumin 4.4 g/dL (3.80-4.90); Albumin/Globulin Ratio 1.83 (1.60-3.17); BUN/Creat Ratio 16.25 Ratio (12.00-20.00); Calcium 9.3 mg/dL (8.7-10.3); Globulin 2.4 g/dL (1.6-3.3); Non-African American GFR(CKD) 93.5 (60.0-200.0); Potassium 4.3 mmol/L (3.5-5.5); Total Bilirubin 0.3 mg/dL (0.3-1.2); Total Protein 6.8 g/dL (6.2-8.2)
== END | disposition home or self-care (01) ==
LOC: LABWHC1 15:59
PROVIDERS: ATTEND Surgery
DX: K80.10 Calculus of gallbladder with chronic cholecystitis without obstruction (principal)
CPT/HCPCS: 36415; 80053; 85027

== ENCOUNTER 2021-07-29 09:32 | Emergency (ER) | payer OTHER ==
[2021-07-29 09:40] VITALS: RESP 18
[2021-07-29] MEDS ORDERED: LIDOCAINE 5% PATCH TOPICAL STA (10:10)
[2021-07-29] MEDS ORDERED: DIPH,PERTUS(ACELL)TETVAC-LF 0.5 ML VIAL IM ONE (10:11)
--- NOTE | 2021-07-29 11:00 | XR ---
Lumbar spine. HISTORY: Back pain. COMPARISON: None. TECHNIQUE: 5 views lumbar spine were obtained. The lumbar vertebral segments are normal in height and alignment and there is no fracture or subluxat ion. There is no spondylolysis or spondylolisthesis. There is mild to moderate disc space narrowing at the L4-5 level indicating mild to moderate degenera tive disc disease. Visualized sacrum and SI joints are normal. IMPRESSION: 1. The lumbar spine fracture or malalignment. 2. Mild to moderate degenerative disc disease at the L4-5 level.
--- NOTE | 2021-07-29 11:34 | ED ---
Back Pain HPI - General Chief Complaint: Back Pain/Injury Stated Complaint: Back injury, [facility] Time Seen by Provider: 07/29/21 09:57 Source: patient, RN notes reviewed Mode of arrival: ambulatory Limitations: physical limitation - History of Present Illness Initial Comments: This a 40-year-old female presents emergency Department chief complaint low back pain. Patient states that she was lifting a box from the shelf and felt a pop in her low back. Patient states one the right side. She states she has no difficulty in breathing denies any bowel, bladder incontinence or retention no saddle anesthesias or lower shunted paresthesias or associated weakness. Patient has increased symptoms when she lays down, moves better if she standing. Patient has no history of back pain. Patient offers no complaints. - Related Data Previous Rx's Medication Instructions Recorded HYDROcodone/APAP 5-325MG [[place] 1 tab PO Q6HR PRN 3 Days #12 tab 02/09/21 5-325] Ibuprofen [Motrin] 600 mg PO Q8HR PRN #20 tab 07/29/21 Lidocaine 5% Patch [Lidoderm 5% 1 patch TOPICAL DAILY #12 patch 07/29/21 Patch] Allergies Allergy/AdvReac Type Severity Reaction Status Date / Time metoclopramide HCl AdvReac Hallucinati Verified 07/29/21 09:40 [From Mily] ons Review of Systems ROS Statement: Those systems with pertinent positive or pertinent negative responses have been documented in the HPI. ROS Other: All systems not noted in ROS Statement are negative. Past Medical History Past Medical History: GERD/Reflux Additional Past Medical History / Comment(s): occasional palpitations History of Any Multi-Drug Resistant Organisms: None Reported Past Surgical History: Section, Cholecystectomy Additional Past Surgical History / Comment(s): D&C. Past Anesthesia/Blood Transfusion Reactions: Previous Problems w/ Anesthesia, Postoperative Nausea & Vomiting (PONV) Additional Past Anesthesia/Blood Transfusion Reaction / Comment(s): Had some SOB waking up after last surgery. Past Psychological History: Anxiety Smoking Status: Former smoker Past Alcohol Use History: None Reported Past Drug Use History: None Reported - Past Family History Mother Family Medical History: No Reported History General Exam Limitations: physical limitation General appearance: alert, in no apparent distress Head exam: Present: atraumatic, normocephalic, normal inspection ENT exam: Present: normal exam, mucous membranes moist Neck exam: Present: normal inspection, full ROM. Absent: tenderness, meningismus, lymphadenopathy Respiratory exam: Present: normal lung sounds bilaterally. Absent: respiratory distress, wheezes, rales, rhonchi, stridor Cardiovascular Exam: Present: regular rate, normal rhythm, normal heart sounds. Absent: systolic murmur, diastolic murmur, rubs, gallop, clicks GI/Abdominal exam: Present: soft, normal bowel sounds. Absent: distended, tenderness, guarding, rebound, rigid Extremities exam: Present: normal inspection, full ROM, normal capillary refill. Absent: tenderness, pedal edema, joint swelling, calf tenderness Back exam: Present: tenderness, paraspinal tenderness. Absent: full ROM, vertebral tenderness Course Vital Signs 07/29/21 09:37 Temperature 97.8 F Pulse Rate 105 H Respiratory 18 Rate Blood Pressure 107/44 O2 Sat by Pulse 97 Oximetry Medical Decision Making - Medical Decision Making Patient's x-ray shows degenerative changes, no malalignment or fracture. Patient did have cut from a daniela paint can tetanus is updated. Patient we discharged in stable condition with close follow-up return parameters were discussed. Disposition Clinical Impression: Lumbar strain Disposition: HOME SELF-CARE Condition: Stable Instructions (If sedation given, give patient instructions): Acute Low Back Pain (ED) Additional Instructions: Please return to the Emergency Department if symptoms worsen or any other concerns. Prescriptions: Lidocaine 5% Patch [Lidoderm 5% Patch] 1 patch TOPICAL DAILY #12 patch Ibuprofen [Motrin] 600 mg PO Q8HR PRN #20 tab PRN Reason: Pain Is patient prescribed a controlled substance at d/c from ED?: No Referrals: Chris Keene MD [Primary Care Provider] - 1-2 days Time of Disposition: 11:34
[2021-07-29] MEDS ORDERED: ACET/COD 300 MG/30 MG STARTER PACK 6 TAB BTL PO STA (11:41)
[2021-07-29 11:58] VITALS: BP 110/68; PULSE 92; TEMP 98.4
== END 2021-07-29 11:57 | disposition home or self-care (01) ==
LOC: EC 09:32
DX: S39.012A Strain of muscle, fascia and tendon of lower back, initial encounter (principal); Z87.891 Personal history of nicotine dependence; Z88.8 Allergy status to other drugs, medicaments and biological substances; Z23 Encounter for immunization; X50.0XXA Overexertion from strenuous movement or load, initial encounter; Y92.89 Other specified places as the place of occurrence of the external cause
CPT/HCPCS: 72110; 90471; 90715; 99283

== ENCOUNTER → 2021-09-17 | Outpatient (CLI) | payer OTHER ==
[2021-09-17 16:46] LABS: Basophils % (A) 0 %; Eosinophils # (A) 0.1 k/uL (0-0.7); Eosinophils % (A) 1 %; HCT 44.1 % (34.0-46.0); HGB 13.5 gm/dL (11.4-16.0); Lymphocytes # (A) 2.5 k/uL (1.0-4.8); Lymphocytes % (A) 34 %; MCH 26.6 pg (25.0-35.0); MCHC 30.7 g/dL (31.0-37.0); MCV 86.9 fL (80.0-100.0); Mean Platelet Volume 10.5; Monocytes # (A) 0.4 k/uL (0-1.0); Monocytes % (A) 5 %; Neutrophils # (A) 4.4 k/uL (1.3-7.7); Neutrophils % (A) 58 %; Platelet Count 189 k/uL (150-450); RBC 5.08 m/uL (3.80-5.40); RDW 13.5 % (11.5-15.5); WBC 7.5 k/uL (3.8-10.6)
[2021-09-17 17:14] LABS: African American GFR (CKD) >90 (>60 ml/min/1.73 sqM); Anion Gap 9 mmol/L; Blood Urea Nitrogen 13 mg/dL (7-17); Calcium 9.8 mg/dL (8.4-10.2); Carbon Dioxide 26 mmol/L (22-30); Chloride 103 mmol/L (98-107); Glucose 88 mg/dL (74-99); Non-African American GFR(CKD) >90 (>60 ml/min/1.73 sqM); Potassium 4.4 mmol/L (3.5-5.1); Sodium 138 mmol/L (137-145)
== END | disposition home or self-care (01) ==
LOC: LABPAT 16:19
PROVIDERS: ATTEND Obstetrics & Gynecology
DX: Z01.812 Encounter for preprocedural laboratory examination (principal)
CPT/HCPCS: 36415; 80048; 85025

== ENCOUNTER → 2021-09-18 | Outpatient (CLI) | payer OTHER ==
[2021-09-18 19:30] LABS: Chol/HDL Ratio 3.14 Ratio; LDL Cholesterol,Calculated 124.3 mg/dL (0.0-131.0)
[2021-09-18 19:38] LABS: ALT 24 U/L (8-44); AST 40 U/L (13-35); Albumin 4.5 g/dL (3.8-4.9); Albumin/Globulin Ratio 1.59 (1.60-3.17); Alkaline Phosphatase 84 U/L (41-126); Bilirubin, Conjugated <0.20 mg/dL (0.20-0.40); Globulin 2.8 g/dL (1.6-3.3); Glucose 76 mg/dL (70-110); Total Protein 7.3 g/dL (6.2-8.2)
== END | disposition home or self-care (01) ==
LOC: LABWHC1 10:36
PROVIDERS: ATTEND Internal Medicine
DX: Z00.00 Encounter for general adult medical examination without abnormal findings (principal)
CPT/HCPCS: 36415; 80061; 80076; 82947

== ENCOUNTER 2021-09-20 07:10 | Day surgery (SDC) | payer OTHER ==
[2021-09-18 15:26] VITALS: BMI 33.1
--- NOTE | 2021-09-19 16:41 | P.HPOB ---
History of Present Illness H&P Date: 09/19/21 Chief Complaint: Menorrhagia and dysmenorrhea Barbara is a 40-year-old female who has dysfunctional uterine bleeding including heavy bleeding and she also has a dysmenorrhea despite prior endometrial ablation. She is scheduled for a robotic-assisted laparoscopic hysterectomy with bilateral salpingectomy possible NELSON and possible BSO. Risks/benefits/returns to this procedure were reviewed with the patient in detail and all questions were answered for her prior to proceeding to the operating room. Risks did include but were not limited to bleeding and infection, damage to bladder or bowel, vascular injuries, nerve injuries, ureteral damage, possible need for further surgery. She'll also undergo a diagnostic cystoscopy at the conclusion of the case. She is normally patient Dr. Stiles who did primary history and physical and again all questions are answered for her prior to proceeding to the operating room. Surgery was prior explained to her in detail to her satisfaction and all questions are answered. Past Medical History Past Medical History: GERD/Reflux Additional Past Medical History / Comment(s): occasional palpitations. FAILED UTERINE ABLATION History of Any Multi-Drug Resistant Organisms: None Reported Past Surgical History: Section, Cholecystectomy, Uterine Ablation Additional Past Surgical History / Comment(s): D&C. Past Anesthesia/Blood Transfusion Reactions: Previous Problems w/ Anesthesia, Postoperative Nausea & Vomiting (PONV) Additional Past Anesthesia/Blood Transfusion Reaction / Comment(s): Had some SOB waking up after last surgery. Smoking Status: Former smoker - Past Family History Mother Family Medical History: No Reported History Medications and Allergies Home Medications Medication Instructions Recorded Confirmed Type Ibuprofen [Motrin] 600 mg PO Q8HR PRN #20 tab 07/29/21 09/18/21 Rx Allergies Allergy/AdvReac Type Severity Reaction Status Date / Time metoclopramide HCl AdvReac Hallucinati Verified 09/18/21 15:17 [From Reglan] ons Exam Osteopathic Statement: *. No significant issues noted on an osteopathic structural exam other than those noted in the History and Physical/Consult. - OBG Physical Exam Breast: both: normal (no masses) Abdomen: bowel sounds normal, no diffuse tenderness, no bruit present, no guarding noted, no hepatomegaly, no splenomegaly, no mass Vulva: both: normal Vagina: normal moisture, no discharge Cervix: no lesion, no discharge Uterus: normal size, normal contour Adnexa: both: normal Anus/Rectum: normal perianal skin, no rectal mass, no hemorrhoids, heme negative
[2021-09-20] MEDS ORDERED: ONDANSETRON 4 MG/2 ML VIAL ONE (07:47)
[2021-09-20] MEDS ORDERED: LACTATED RINGERS 1,000 ML IV ONE ×3 (08:00→11:12)
[2021-09-20] MEDS ORDERED: LIDOCAINE 1% (10MG/ML) FOR IV START INTRADERMA ONE ×2 (08:10→08:30)
[2021-09-20] MEDS ORDERED: fentaNYL (PF) 50 MCG/ML 2 ML AMP IV ONE (08:31)
[2021-09-20] MEDS ORDERED: MIDAZOLAM 2 MG/2 ML VIAL IV ONE (08:31)
[2021-09-20] MEDS ORDERED: DEXAMETHASONE SOD PHOSPHATE 4 MG/ML 1 ML VIAL IV ONE (08:53)
[2021-09-20] MEDS ORDERED: KETAMINE 10 MG/ML 20 ML VIAL ONE (09:35)
[2021-09-20] MEDS ORDERED: GLYCOPYRROLATE 0.2 MG/ML 2 ML VIAL ONE (09:35)
[2021-09-20] MEDS ORDERED: PROPOFOL 10 MG/ML 20 ML VIAL IV ONE (09:35)
[2021-09-20] MEDS ORDERED: SUCCINYLCHOLINE CHLORIDE 100 MG/5 ML SYR IV ONE (09:35)
[2021-09-20] MEDS ORDERED: PHENYLEPHRINE-0.9% NACL SYG 1,000 MCG/10 ML SYRINGE ONE (09:35)
[2021-09-20] MEDS ORDERED: LIDOCAINE 1% INJ 10MG/ML (20 ML MDV) ONE (09:35)
[2021-09-20] MEDS ORDERED: NEOSTIGMINE 1 MG/ML 10 ML VIAL ONE (09:35)
[2021-09-20] MEDS ORDERED: fentaNYL (PF) 50 MCG/ML 2 ML AMP ONE (09:35)
[2021-09-20] MEDS ORDERED: SODIUM CHLORIDE 0.9% (PF) 10 ML VIAL ONE (09:35)
[2021-09-20] MEDS ORDERED: ROCURONIUM 10 MG/ML (5 ML VIAL) IV ONE (09:35)
[2021-09-20] MEDS ORDERED: ROPIVACAINE 5 MG/ML 30 ML VIAL ONE (09:35)
[2021-09-20] MEDS ORDERED: DEXAMETHASONE SOD PHOSPHATE 4 MG/ML 1 ML VIAL ONE (09:35)
[2021-09-20] MEDS ORDERED: MIDAZOLAM 2 MG/2 ML VIAL ONE (09:35)
[2021-09-20] MEDS ORDERED: HYDROmorphone (PF) 1 MG/ML ONE (09:35)
[2021-09-20] MEDS ORDERED: BUPIVACAINE (PF) 0.25% 30 ML VIAL SQ ONE (10:21)
--- NOTE | 2021-09-20 10:55 | P.ANPRN ---
Procedure Note - Anesthesia - Nerve Block Performed Bilateral Erector Spinae Time Out Performed: Yes (829) Date of Procedure: 09/20/21 Location of Patient: PreOp Indication: Acute Post-Operative Pain, Dx/Pain Location (Abdominal Pain), Requested by Surgeon Specifically requested for management of pain by DrHumphrey: Yovani Hopkins Sedation Type: Sedate with meaningful contact maintained Preparation: Sterile Prep Position: Prone Catheter: None Needle Types: Pajunk Needle Gauge: 21 Ultrasound used to visualize needle placement: Yes Injectate: Other (see comment) (30 cc and saline 30 cc,decadron 8 mg) Blood Aspirated: No Pain Paresthesia on Injection Noted: No Resistance on Injection: Normal Image Stored and Saved: Yes Events: Uneventful and Well Tolerated
[2021-09-20] MEDS ORDERED: SIMETHICONE 80 MG CHEWABLE PO PRN (11:05)
[2021-09-20] MEDS ORDERED: HYDROcodone/APAP 5-325MG 1 EACH TAB PO PRN (11:06)
--- NOTE | 2021-09-20 11:11 | P.OP ---
Date of Procedure: 09/20/21 Preoperative Diagnosis: Pelvic pain: Post-ablative syndrome: Dysfunctional uterine bleeding Postoperative Diagnosis: Same Procedure(s) Performed: Robotic-assisted laparoscopic hysterectomy with bilateral salpingectomy Anesthesia: MAGDA Surgeon: Yovani Hopkins Lifeguard #1: Josefa Toledo Estimated Blood Loss (ml): 25 IV fluids (ml): 500 Urine output (ml): 100 Pathology: other (Uterus, cervix and fallopian tubes) Condition: stable Disposition: floor Operative Findings: Pathology pending Description of Procedure: Patient was taken to the operating suite where a general anesthetic was found be adequate. She was prepped and draped in the normal sterile fashion and placed in the dorsal lithotomy position. Initially a weighted speculum was inserted in the vagina and anterior lip of cervix was identified and grasped with a single- tooth tenaculum. Was then elevated and stay sutures were placed. Cervix was then dilated and sounded to 8 cm and a Asha manipulator with an 8 cm tip and 3.5 central cup was placed. All her other incidents removed and Solano cath was placed. Gloves were changed and attention was turned to abdominal portion procedure where 2 mL a course of Marcaine was injected just superior to the umbilicus. Through this injected anesthetic and 8 mm skin incision was made and through this incision, under direct visualization with an optical trocar and sleeve, the camera was inserted. Once peritoneal placement was assured gas was allowed to fully insufflate the abdomen and patient was then placed in steep 25 Trendelenburg position. 2 lateral ports then placed on the same plane as the umbilicus but 10 cm lateral on right and left side. Fourth port and sleeve was then inserted through a 1 segment incision between the left lateral and the medial port and the camera port was then exchanged for robotic port. At this point robot was brought in and fully docked with a scissor and [place] grasper being used. I broke scrub and went to the console. Observations pelvis were noted. Uterus was then elevated and tipped to the right side and the left looking tube was excised. Left utero-ovarian ligament was then cauterized transected and moving through the mesosalpinx the round ligament tissues was also cauterized transected area and round blade was then cauterized transected and anterior posterior leafs the broad ligament were developed and bacillary on the left side of the uterus was cauterized. Bladder flap was then entered undermining with a [place] and incised with the scissor across face the uterus the bladder was bluntly dissected out of the operative field. In similar fashion then the right side of the uterus was developed. Once this was completed balloon was blown up on the Asha manipulator and an anterior colpotomy was made. Cup was then followed around 3 and 60 in a counterclockwise fashion cheating head when necessary to maintain excellent hemostasis. Once 3 and 60 was obtained uterus is brought into the vagina to maintain pneumoperitoneum and pedicles were verified hemostatic. Once this was felt to be adequate incidents were exchanged for a cardia grasper and a make suture cut and the vaginal cuff was closed with 20V lock suture. Pelvis was then irrigated and with no bleeding noted. Across the pedicles instruments were removed and gas allowed to expel from the abdomen. 5 deep breaths were provided during this process. At this point patient was lowered into a 15 today Trendelen[address] position and Dr. Toledo close incision subcuticularly with 3-0 Vicryl and 8 mL of quarter percent Marcaine injected around these incisions and I did a diagnostic cystoscopy with excellent flow noted from both ureteral jets. All instruments were then removed. Sponge, lap, needle counts were all correct 2. Patient was then taken to the recovery room in stable and satisfactory condition.
[2021-09-20] MEDS: KETOROLAC 30 MG/ML 1 ML VIAL IVP PRN ×2 (11:25→18:32)
[2021-09-20] MEDS ORDERED: HYDROmorphone 0.5 MG/0.5 ML SYRINGE IVP ONE (11:39)
[2021-09-20] MEDS ORDERED: ONDANSETRON 4 MG/2 ML VIAL IVP PRN (13:55)
[2021-09-20] MEDS ORDERED: diphenhydrAMINE 50 MG/ML 1 ML VIAL IVP PRN (13:56)
[2021-09-20] MEDS: SENNOSIDES-DOCUSATE SODIUM 1 EACH TAB PO SCH (22:59)
[2021-09-20] MEDS: HYDROcodone/APAP 5-325MG 1 EACH TAB PO PRN (23:35)
[2021-09-20 23:56] VITALS: BP 106/72; PULSE 90; RESP 16; TEMP 97.6
--- NOTE | 2021-09-21 10:35 | P.DS ---
Providers Expected date of discharge: 09/21/21 Attending physician: Yovani Hopkins Primary care physician: Stated None - Discharge Diagnosis(es) (1) S/P robot-assisted surgical procedure Current Visit: Yes Status: Acute (2) Status post laparoscopic hysterectomy Current Visit: Yes Status: Acute Hospital Course: Patient presented for total laparoscopic hysterectomy and bilateral salpingectomy for dysmenorrhea and menorrhagia. Patient underwent this procedure without complication. Postoperatively she is doing very well. Denies nausea, vomiting, chest pain, shortness of breath or any calf pain. Her incisions are clean, dry, intact. Her pain is well-controlled, she is tolerating regular diet, passing flatus and voiding without problem. Patient will be discharged home postoperative day #1 in stable condition to follow-up with Dr. Benavidez in 1-2 weeks. Plan - Discharge Summary Discharge Rx Participant: Yes New Discharge Prescriptions: New HYDROcodone/APAP 5-325MG [[place] 5-325] 1 - 2 each PO Q6HR PRN #20 tab PRN Reason: Pain Ibuprofen [Motrin] 600 mg PO Q6HR PRN #30 tab PRN Reason: Mild Pain Or Fever >= 100.5 No Action Ibuprofen [Motrin] 600 mg PO Q8HR PRN #20 tab PRN Reason: Pain Discharge Medication List Ibuprofen [Motrin] 600 mg PO Q8HR PRN #20 tab 07/29/21 [Rx] HYDROcodone/APAP 5-325MG [[place] 5-325] 1 - 2 each PO Q6HR PRN #20 tab 09/21/21 [Rx] Ibuprofen [Motrin] 600 mg PO Q6HR PRN #30 tab 09/21/21 [Rx] Follow up Appointment(s)/Referral(s): Yovani Hopkins DO [Doctor of Osteopathic Medicine] - 1 Week Discharge Disposition: HOME SELF-CARE
[2021-09-21] MEDS: HYDROcodone/APAP 5-325MG 1 EACH TAB PO PRN (10:46)
[2021-09-21] MEDS: SENNOSIDES-DOCUSATE SODIUM 1 EACH TAB PO SCH (12:14)
== END 2021-09-21 12:33 | disposition home or self-care (01) ==
LOC: OR 07:10 → 4FBP 11:13 → OR 09-21 12:33
PROVIDERS: ATTEND Obstetrics & Gynecology
DX: N92.0 Excessive and frequent menstruation with regular cycle (principal); N94.6 Dysmenorrhea, unspecified; R10.2 Pelvic and perineal pain; Z98.890 Other specified postprocedural states; Z20.822 Contact with and (suspected) exposure to COVID-19
CPT/HCPCS: 58571; S2900; 76942; 81025; 86850; 86900; 86901; 87635; 88307

== ENCOUNTER → 2021-12-14 | Outpatient (CLI) | payer OTHER ==
--- NOTE | 2021-12-16 20:37 | US ---
EXAMINATION TYPE: US kidneys/renal and bladder DATE OF EXAM: 12/14/2021 COMPARISON: NONE CLINICAL HISTORY: R31.9 Hematuria, N39.0 URINARY TRACT INFECTION, SITE NOT SPE. EXAM MEASUREMENTS: Right Kidney: 10.1 x 5.1 x 5.0 cm Left Kidney: 11.0 x 5.1 x 4.7 cm Right Kidney: Inferior pole obscured by bowel gas, portions visualize show no hydronephrosis or john s Left Kidney: Inferior pole obscured by bowel gas, no hydronephrosis or masses seen Bladder: wnl IMPRESSION: 1. Renal ultrasound as visualized appears unremarkable. 2. There is limitation of the examination due to partial obscuration of the inferior poles of the kid neys due to bowel gas.
== END | disposition home or self-care (01) ==
LOC: RADUSWWP 15:37
PROVIDERS: ATTEND Internal Medicine
DX: R31.9 Hematuria, unspecified (principal); N39.0 Urinary tract infection, site not specified
CPT/HCPCS: 76770

== ENCOUNTER → 2022-06-05 | Outpatient (CLI) | payer OTHER ==
[2022-06-05 16:35] LABS: Thyroid Peroxidase Antibodies <9.0 U/mL (0.0-33.0)
[2022-06-05 16:50] LABS: Follicle Stimulating Hormone 4.8 mIU/mL; Prolactin 9.4 ng/mL (2.800-29.200)
[2022-06-05 17:39] LABS: HCT 42.2 % (37.2-46.3); HGB 13.1 g/dL (12.0-15.0); MCH 26.1 pg (27.0-32.0); MCV 84.1 fL (80.0-97.0); Mean Platelet Volume 13.3 fL (9.5-12.2); NRBC Per 100 WBC 0 /100 WBCS (0.0-0.0); Platelet Count 156 X 10*3/uL (140-440); RBC 5.02 X 10*6/uL (4.10-5.20); RDW 14.6 % (11.5-14.5); WBC 5.26 X 10*3/uL (4.50-10.00)
== END | disposition home or self-care (01) ==
LOC: LABWHC1 08:00
PROVIDERS: ATTEND Internal Medicine Endocrinology, Diabetes & Metabolism
DX: R53.83 Other fatigue (principal); R63.5 Abnormal weight gain
CPT/HCPCS: 36415; 82024; 82533; 82607; 82626; 83001; 84146; 85027; 86376

== ENCOUNTER → 2022-06-08 | Outpatient (CLI) | payer OTHER ==
[2022-06-08 12:02] LABS: Albumin 4.2 g/dL (3.8-4.9); Albumin/Globulin Ratio 1.68 (1.60-3.17); Anion Gap 12.2 mmol/L (10.00-18.00); BUN/Creat Ratio 14.38 Ratio (12.00-20.00); Calcium 9.3 mg/dL (8.7-10.3); Carbon Dioxide 20.4 mmol/L (20.0-27.5); Follicle Stimulating Hormone 4.2 mIU/mL; Globulin 2.5 g/dL (1.6-3.3); Non-African American GFR(CKD) 109.6 (60.0-200.0); Potassium 4.6 mmol/L (3.5-5.5); Total Bilirubin 0.3 mg/dL (0.30-1.20); Total Protein 6.7 g/dL (6.2-8.2)
== END | disposition home or self-care (01) ==
LOC: LABWHC1 08:12
PROVIDERS: ATTEND Internal Medicine Endocrinology, Diabetes & Metabolism
DX: R53.83 Other fatigue (principal)
CPT/HCPCS: 36415; 80053; 82024; 82533; 82670; 83001; 84439; 84443

== ENCOUNTER → 2022-12-24 | Outpatient (CLI) | payer OTHER ==
--- NOTE | 2022-12-24 09:37 | MR ---
EXAMINATION TYPE: MR brain wo con DATE OF EXAM: 12/24/2022 COMPARISON: NONE HISTORY: Rt side headaches TECHNIQUE: Multiplanar, multisequence imaging of the brain and brainstem is performed without IV cont rast. FINDINGS: Diffusion weighted images demonstrate no evidence of a recent infarct or other diffusion abnormality. The ventricular system and cisternal spaces are normal in size and appearance. The brain volume is a ge appropriate. There are scattered foci of T2 hyperintensity seen throughout the white matter bilate rally. Lesions are nonspecific in appearance and distribution. Approximately 80 scattered lesions are felt present for reference is a 10 x 5 mm posterior left frontal lesion axial image 21. Midline structures demonstrate normal morphology. The craniocervical junction appears within normal limits. Normal vascular flow voids are present. The visualized sinuses are clear and the globes are i ntact. IMPRESSION: At least moderate nonspecific white matter changes. Findings may be related to altered va scular mechanics from product of migraine headaches. Other etiologies including demyelinating disease needs to be considered in patient of this age.
== END | disposition home or self-care (01) ==
LOC: RADMRIMAIN 08:08
PROVIDERS: ATTEND Family Medicine
DX: R90.82 White matter disease, unspecified (principal); R51.9 Headache, unspecified
CPT/HCPCS: 70551

== ENCOUNTER 2023-02-27 12:42 | Emergency (ER) | payer OTHER ==
[2023-02-27 12:51] VITALS: TEMP 98.2
--- NOTE | 2023-02-27 13:13 | ED ---
General Adult HPI - General Chief complaint: Neuro Symptoms/Deficit Stated complaint: R Side Numbness Time Seen by Provider: 02/27/23 12:59 Source: patient, RN notes reviewed Mode of arrival: ambulatory Limitations: no limitations - History of Present Illness Initial comments: Patient is a pleasant 42-year-old female presenting to the emergency department with concerns with paresthesias. Onset of symptoms was over an hour ago. Patient did have some discomfort of her right upper back extending to her right arm. Patient states this lasted about a minute or 2. Patient states following this she did become anxious. Patient did have some mild shortness of breath that has resolved. Patient has had right-sided paresthesia since that time. Paresthesias involved the face and arm and leg. Patient states paresthesias have improved but still bother her a tiny bit on the arm. No loss of sensation. No weakness. No confusion. No speech problems. Patient omits to feeling anxious following the event but believes this is mostly resolved. - Related Data Previous Rx's Medication Instructions Recorded Ibuprofen [Motrin] 600 mg PO Q8HR PRN #20 tab 07/29/21 HYDROcodone/APAP 5-325MG [[place] 1 - 2 each PO Q6HR PRN #20 tab 09/21/21 5-325] Ibuprofen [Motrin] 600 mg PO Q6HR PRN #30 tab 09/21/21 Allergies Allergy/AdvReac Type Severity Reaction Status Date / Time metoclopramide HCl AdvReac Hallucinati Verified 02/27/23 12:51 [From [facility]] ons Review of Systems ROS Statement: Those systems with pertinent positive or pertinent negative responses have been documented in the HPI. ROS Other: All systems not noted in ROS Statement are negative. Constitutional: Denies: fever Eyes: Denies: eye pain ENT: Denies: ear pain Respiratory: Denies: cough Cardiovascular: Denies: chest pain Endocrine: Denies: fatigue Gastrointestinal: Denies: abdominal pain Genitourinary: Denies: dysuria Musculoskeletal: Denies: back pain Skin: Denies: rash Neurological: Reports: as per HPI, paresthesias. Denies: headache, weakness, confusion Past Medical History Past Medical History: GERD/Reflux Additional Past Medical History / Comment(s): occasional palpitations History of Any Multi-Drug Resistant Organisms: None Reported Past Surgical History: Section, Cholecystectomy Additional Past Surgical History / Comment(s): D&C. Past Anesthesia/Blood Transfusion Reactions: Previous Problems w/ Anesthesia, Postoperative Nausea & Vomiting (PONV) Additional Past Anesthesia/Blood Transfusion Reaction / Comment(s): Had some SOB waking up after last surgery. Past Psychological History: Anxiety Smoking Status: Never smoker Past Alcohol Use History: Occasional Past Drug Use History: None Reported - Past Family History Mother Family Medical History: No Reported History General Exam Limitations: no limitations General appearance: alert, in no apparent distress Head exam: Present: atraumatic, normocephalic Eye exam: Present: normal appearance, PERRL, EOMI ENT exam: Present: normal oropharynx Neck exam: Present: normal inspection Respiratory exam: Present: normal lung sounds bilaterally Cardiovascular Exam: Present: regular rate, normal rhythm Expanded Peripheral pulses: 2+: Radial (R), Radial (L) GI/Abdominal exam: Present: soft. Absent: tenderness Extremities exam: Present: normal inspection, full ROM. Absent: tenderness Back exam: Present: normal inspection Neurological exam: Present: alert, oriented X3, CN II-XII intact. Absent: motor sensory deficit Expanded Neurological exam: Present: protecting the airway Speech: Present: fluid speech Sensory exam: Upper Extremity Light Touch: Normal, Lower Extremity Light Touch: Normal Motor strength exam: RUE: 5, LUE: 5, RLE: 5, LLE: 5 Eye Response: (4) open spontaneously Motor Response: (6) obeys commands Verbal Response: (5) oriented Psychiatric exam: Present: normal affect, normal mood Skin exam: Present: normal color Course Vital Signs 02/27/23 12:47 Temperature 98.2 F Pulse Rate 109 H Respiratory 20 Rate Blood Pressure 154/95 O2 Sat by Pulse 99 Oximetry Medical Decision Making - Medical Decision Making Was pt. sent in by a medical professional or institution (, PA, DIRECTOR OF NURSING, urgent care, hospital, or snf...) When possible be specific @ -No Did you speak to anyone other than the patient for history (EMS, parent, family, police, friend...)? What history was obtained from this source @ -No Did you review nursing and triage notes (agree or disagree)? Why? @ -I reviewed and agree with nursing and triage notes Were old charts reviewed (outside hosp., previous admission, EMS record, old EKG, old radiological studies, urgent care reports/EKG's, snf records)? Report findings @ -No old charts were reviewed Differential Diagnosis (chest pain, altered mental status, abdominal pain women, abdominal pain men, vaginal bleeding, weakness, fever, dyspnea, syncope, headache, dizziness, GI bleed, back pain, seizure, CVA, palpatations, mental health)? @ -Differential Weakness: Hypoglycemia, shock, sepsis, hyponatremia, anemia, infection, AR, ETOH, adverse medicine reaction, overdose, stroke, this is not meant to be an all-inclusive list. EKG interpreted by me (3pts min.). @ -As above X-rays interpreted by me (1pt min.). @ -None done CT interpreted by me (1pt min.). @ -Report reviewed U/S interpreted by me (1pt. min.). @ -None done What testing was considered but not performed or refused? (CT, X-rays, U/S, labs)? Why? @ -None What meds were considered but not given or refused? Why? @ -None Did you discuss the management of the patient with other professionals (professionals i.e. , PA, DIRECTOR OF NURSING, lab, RT, psych nurse, social media campaign manager, bag checker, teacher, safety patrol officer, director of casework services)? Give summary @ -No Was smoking cessation discussed for >3mins.? @ -No Was critical care preformed (if so, how long)? @ -No Were there social determinants of health that impacted care today? How? (Homelessness, low income, unemployed, alcoholism, drug addiction, transportation, low edu. Level, literacy, decrease access to med. care, custodial, rehab)? @ -No Was there de-escalation of care discussed even if they declined (Discuss DNR or withdrawal of care, Hospice)? DNR status @ -No What co-morbidities impacted this encounter? (DM, HTN, Smoking, COPD, CAD, Cancer, CVA, ARF, Chemo, Hep., AIDS, mental health diagnosis, sleep apnea, morbid obesity)? @ -None Was patient admitted / discharged? Hospital course, mention meds given and route, prescriptions, significant lab abnormalities, going to OR and other pertinent info. @ -Patient reevaluated and symptom-free. Patient is updated on results and need for follow-up. Undiagnosed new problem with uncertain prognosis? @ -No Drug Therapy requiring intensive monitoring for toxicity (Heparin, Nitro, Insulin, Cardizem)? @ -No Were any procedures done? @ -No Diagnosis/symptom? @ -Paresthesia Acute, or Chronic, or Acute on Chronic? @ -Acute Uncomplicated (without systemic symptoms) or Complicated (systemic symptoms)? @ -default Side effects of treatment? @ -No Exacerbation, Progression, or Severe Exacerbation? @ -No Poses a threat to life or bodily function? How? (Chest pain, [place], AR, pneumonia, PE, COPD, DKA, ARF, appy, cholecystitis, CVA, Diverticulitis, Homicidal, Suicidal, threat to staff... and all critical care pts) @ -No Disposition Clinical Impression: Paresthesia Disposition: HOME SELF-CARE Condition: Stable Instructions (If sedation given, give patient instructions): Paresthesia (ED) Additional Instructions: Please do follow-up through primary care physician in the next day or 2 for recheck. Return for weakness, confusion, speech problems, or sitting or change in symptoms or any other concerns. Is patient prescribed a controlled substance at d/c from ED?: No Referrals: Ancelmo Freeman MD [STAFF PHYSICIAN] - 1-2 days Time of Disposition: 14:07
--- NOTE | 2023-02-27 13:54 | CT ---
EXAMINATION TYPE: CT brain wo con CT DLP: 1143.4 mGycm, Automated exposure control for dose reduction was used. DATE OF EXAM: 02/27/2023 1:49 PM COMPARISON: Prior CT Brain from 08/13/2012, MRI brain 12/24/2022. CLINICAL INDICATION:Female, 42 years old with history of arm problems right, Right arm numbness. TECHNIQUE: Brain: Multiple axial CT images of the brain were obtained without IV contrast. Coronal and sagittal reformats reviewed. FINDINGS: Brain: Extra-axial spaces: No abnormal extra-axial fluid collections. Ventricular system: Within normal limits Cerebral parenchyma: No acute intraparenchymal hemorrhage or mass effect. The nicole-white junction is well differentiated. Cerebellum: Unremarkable. Mass effect: No evidence of midline shift. Intracranial vasculature: unremarkable Soft tissues: Normal. Calvarium/osseous structures: No depressed skull fracture. Paranasal sinuses and mastoid air cells: Clear Visualized orbits: Orbital contents are intact. IMPRESSION: No CT evidence for an acute intracranial process.
[2023-02-27 14:42] VITALS: BP 120/67; PULSE 72; RESP 18
== END 2023-02-27 14:42 | disposition home or self-care (01) ==
LOC: EC 12:42
DX: R20.2 Paresthesia of skin (principal); Z86.59 Personal history of other mental and behavioral disorders; Z88.8 Allergy status to other drugs, medicaments and biological substances; Z90.49 Acquired absence of other specified parts of digestive tract
CPT/HCPCS: 70450; 99283

== ENCOUNTER 2023-03-12 08:10 | Emergency (ER) | payer OTHER ==
[2023-03-12 08:14] VITALS: RESP 16
--- NOTE | 2023-03-12 09:04 | ED ---
Extremity Problem HPI - General Chief complaint: Extremity Problem,Nontraumatic Stated complaint: R arm pain Time Seen by Provider: 03/12/23 08:17 Source: patient, RN notes reviewed Mode of arrival: ambulatory Limitations: no limitations - History of Present Illness Initial comments: This is a 42-year-old female who presents to the emergency department for right arm pain. States that she has had ongoing problems over the last couple of months where she has pain in the right shoulder going down the arm and terminating around the elbow. Denies any injuries. Last night, the pain became much worse than it has ever been and it took her breath away. The pain occurs intermittently and lasts for up to 30 minutes at a time. There is no pattern to this pain, and she cannot think of any modifying factors. She is not taking anything to manage her pain. She was evaluated here a couple of weeks ago for similar symptoms and a stroke was ruled out at that time. Patient is very concerned that she may be having a heart attack. Denies any chest pain or shortness of breath. Denies any fevers, chills, sore throat, cough, dyspnea, chest pain, palpitations, abdominal pain, nausea, vomiting, diarrhea, back pain, or headaches. MD Complaint: extremity pain - Related Data Previous Rx's Medication Instructions Recorded RX: predniSONE 50 mg PO DAILY 5 Days #5 tab 03/12/23 Allergies Allergy/AdvReac Type Severity Reaction Status Date / Time metoclopramide HCl AdvReac Hallucinati Verified 02/27/23 14:13 [From Reglan] ons Review of Systems ROS Statement: Those systems with pertinent positive or pertinent negative responses have been documented in the HPI. ROS Other: All systems not noted in ROS Statement are negative. Past Medical History Past Medical History: GERD/Reflux Additional Past Medical History / Comment(s): occasional palpitations History of Any Multi-Drug Resistant Organisms: None Reported Past Surgical History: Section, Cholecystectomy, Hysterectomy Additional Past Surgical History / Comment(s): D&C. Past Anesthesia/Blood Transfusion Reactions: Previous Problems w/ Anesthesia, Postoperative Nausea & Vomiting (PONV) Additional Past Anesthesia/Blood Transfusion Reaction / Comment(s): Had some SOB waking up after last surgery. Past Psychological History: Anxiety Smoking Status: Never smoker Past Alcohol Use History: Occasional Past Drug Use History: None Reported - Past Family History Mother Family Medical History: No Reported History General Exam Limitations: no limitations General appearance: alert, in no apparent distress Head exam: Present: atraumatic, normocephalic, normal inspection Respiratory exam: Present: normal lung sounds bilaterally. Absent: respiratory distress, wheezes, rales, rhonchi, stridor Cardiovascular Exam: Present: regular rate, normal rhythm, normal heart sounds. Absent: systolic murmur, diastolic murmur, rubs, gallop, clicks Extremities exam: Present: other (No tenderness, erythema, or swelling to the right upper extremity. Full active and passive range of motion. 2+ radial pulses.) Neurological exam: Present: alert, oriented X3, CN II-XII intact Psychiatric exam: Present: normal affect, normal mood Skin exam: Present: warm, dry, intact, normal color. Absent: rash Course Vital Signs 03/12/23 03/12/23 03/12/23 08:12 09:30 10:00 Temperature 98 F Pulse Rate 90 78 86 Respiratory 16 16 16 Rate Blood Pressure 157/96 127/82 106/75 O2 Sat by Pulse 97 98 99 Oximetry 03/12/23 10:30 Temperature 98.1 F Pulse Rate 66 Respiratory 16 Rate Blood Pressure 107/71 O2 Sat by Pulse 99 Oximetry Medical Decision Making - Medical Decision Making This is a 42-year-old female who presents to the emergency department for right arm pain. Was pt. sent in by a medical professional or institution? @ -No Did you speak to anyone other than the patient for history? @ -No Did you review nursing and triage notes? @ -Yes, and I agree, it is accurate with regards to the patient's symptoms. Were old charts reviewed? @ -No Differential Diagnosis? @ -Differential Arm Pain: Fracture, dislocation, contusion, radiculopathy, NV, CVA/TIA, this is not meant to be an all-inclusive list. EKG interpreted by me (3pts min.)? @ -EKG interpreted by me demonstrating the following: Sinus rhythm. Ventricular rate 83 beats per minute, WI interval 141 ms, QRS duration 80 ms, QTC 376 ms. X-rays interpreted by me (1pt min.)? @ -Chest x-ray obtained, my interpretation identifies no localized cons olidations or infiltrates. X-ray of the right humerus obtained as well. My interpretation identifies no acute fractures. CT interpreted by me (1pt min.)? @ -Not obtained U/S interpreted by me (1pt. min.)? @ -Not obtained What testing was considered but not performed? (CT, X-rays, U/S, labs)? Why? @ -None What meds were considered but not given? Why? @ -None Did you discuss the management of the patient with other professionals? @ -No Did you reconcile home meds? @ -No Was smoking cessation discussed for >3mins.? @ -No Was critical care preformed (if so, how long)? @ -No Were there social determinants of health that impacted care today? How? (Homelessness, low income, unemployed, alcoholism, drug addiction, transportation, low edu. Level, literacy, decrease access to med. care, [facility], rehab)? @ -No Was there de-escalation of care discussed even if they declined? (Discuss DNR or withdrawal of care, Hospice)? @ -No What co-morbidities impacted this encounter? (DM, HTN, Smoking, COPD, CAD, Cancer, CVA, Hep., AIDS, mental health diagnosis, sleep apnea, morbid obesity)? @ -GERD Was patient admitted / discharged? @ -Discharged. Per the patient's request, cardiac workup was obtained. Lab work and EKG revealed no acute process. Chest x-ray and x-ray of the right humerus obtained, also revealing no acute findings. Discussed that the description of her symptoms are most likely musculoskeletal in nature. She was given a prescription for 5 day course of prednisone. Advised that she take this with Tylenol. She was also given information for orthopedic follow-up for further evaluation of ongoing symptoms. Undiagnosed new problem with uncertain prognosis? @ -None Drug Therapy requiring intensive monitoring for toxicity (Heparin, Nitro, Insulin, Cardizem)? @ -None Were any procedures done? @ -None Diagnosis/symptom? @ -Right arm pain Acute, or Chronic, or Acute on Chronic? @ -Acute Uncomplicated (without systemic symptoms) or Complicated (systemic symptoms)? @ -Uncomplicated Side effects of treatment? @ -None Exacerbation, Progression, or Severe Exacerbation] @ -Not applicable Poses a threat to life or bodily function? @ -No Return precautions reviewed in depth, the patient is instructed to return to the emergency department with any new, worsening, or concerning symptoms. Patient verbalized understanding. This case was discussed in detail with the attending ED physician, Dr. Reese. Presentation, findings, and treatment plan discussed in detail as well. - Lab Data Result diagrams: 03/12/23 08:44 03/12/23 08:44 Lab Results 03/12/23 03/12/23 03/12/23 Range/Units 08:44 08:44 08:44 WBC 6.4 (3.8-10.6) k/uL RBC 5.15 (3.80-5.40) m/uL Hgb 13.9 (11.4-16.0) gm/dL Hct 43.1 (34.0-46.0) % MCV 83.7 (80.0-100.0) fL MCH 27.0 (25.0-35.0) pg MCHC 32.3 (31.0-37.0) g/dL RDW 13.4 (11.5-15.5) % Plt Count 179 (150-450) k/uL MPV 10.2 Neutrophils % 59 % Lymphocytes % 33 % Monocytes % 4 % Eosinophils % 2 % Basophils % 0 % Neutrophils # 3.8 (1.3-7.7) k/uL Lymphocytes # 2.1 (1.0-4.8) k/uL Monocytes # 0.3 (0-1.0) k/uL Eosinophils # 0.1 (0-0.7) k/uL Basophils # 0.0 (0-0.2) k/uL PT 9.8 (9.0-12.0) sec INR 0.9 (<1.2) APTT 22.9 (22.0-30.0) sec Sodium 136 L (137-145) mmol/L Potassium 4.3 (3.5-5.1) mmol/L Chloride 107 (98-107) mmol/L Carbon Dioxide 22 (22-30) mmol/L Anion Gap 7 mmol/L BUN 11 (7-17) mg/dL Creatinine 0.61 (0.52-1.04) mg/dL Est GFR (CKD-EPI)AfAm >90 (>60 ml/min/1.73 sqM) Est GFR (CKD-EPI)NonAf >90 (>60 ml/min/1.73 sqM) Glucose 88 (74-99) mg/dL Calcium 9.0 (8.4-10.2) mg/dL Magnesium 1.9 (1.6-2.3) mg/dL Total Bilirubin 0.5 (0.2-1.3) mg/dL AST 30 (14-36) U/L ALT 24 (4-34) U/L Alkaline Phosphatase 68 (38-126) U/L Troponin I (0.000-0.034) ng/mL Total Protein 6.7 (6.3-8.2) g/dL Albumin 3.8 (3.5-5.0) g/dL 03/12/23 Range/Units 08:44 WBC (3.8-10.6) k/uL RBC (3.80-5.40) m/uL Hgb (11.4-16.0) gm/dL Hct (34.0-46.0) % MCV (80.0-100.0) fL MCH (25.0-35.0) pg MCHC (31.0-37.0) g/dL RDW (11.5-15.5) % Plt Count (150-450) k/uL MPV Neutrophils % % Lymphocytes % % Monocytes % % Eosinophils % % Basophils % % Neutrophils # (1.3-7.7) k/uL Lymphocytes # (1.0-4.8) k/uL Monocytes # (0-1.0) k/uL Eosinophils # (0-0.7) k/uL Basophils # (0-0.2) k/uL PT (9.0-12.0) sec INR (<1.2) APTT (22.0-30.0) sec Sodium (137-145) mmol/L Potassium (3.5-5.1) mmol/L Chloride (98-107) mmol/L Carbon Dioxide (22-30) mmol/L Anion Gap mmol/L BUN (7-17) mg/dL Creatinine (0.52-1.04) mg/dL Est GFR (CKD-EPI)AfAm (>60 ml/min/1.73 sqM) Est GFR (CKD-EPI)NonAf (>60 ml/min/1.73 sqM) Glucose (74-99) mg/dL Calcium (8.4-10.2) mg/dL Magnesium (1.6-2.3) mg/dL Total Bilirubin (0.2-1.3) mg/dL AST (14-36) U/L ALT (4-34) U/L Alkaline Phosphatase (38-126) U/L Troponin I <0.012 (0.000-0.034) ng/mL Total Protein (6.3-8.2) g/dL Albumin (3.5-5.0) g/dL - Radiology Data Radiology results: report reviewed, image reviewed Disposition Clinical Impression: Right arm pain Disposition: HOME SELF-CARE Instructions (If sedation given, give patient instructions): Arm Pain (ED) Additional Instructions: Return to the emergency department with any new, worsening, or concerning symptoms. Take the prednisone daily for 5 days. Contact orthopedics as listed below for further evaluation. Follow up with your primary care provider in 1-2 days. Prescriptions: RX: predniSONE 50 mg PO DAILY 5 Days #5 tab Is patient prescribed a controlled substance at d/c from ED?: No Referrals: Marcela Ulloa MD [Primary Care Provider] - 1-2 days Drew Camara DO [Doctor of Osteopathic Medicine] - 1-2 days
[2023-03-12 09:25] LABS: Basophils % (A) 0 %; Eosinophils # (A) 0.1 k/uL (0-0.7); Eosinophils % (A) 2 %; HCT 43.1 % (34.0-46.0); HGB 13.9 gm/dL (11.4-16.0); Lymphocytes # (A) 2.1 k/uL (1.0-4.8); Lymphocytes % (A) 33 %; MCHC 32.3 g/dL (31.0-37.0); MCV 83.7 fL (80.0-100.0); Mean Platelet Volume 10.2; Monocytes # (A) 0.3 k/uL (0-1.0); Monocytes % (A) 4 %; Neutrophils # (A) 3.8 k/uL (1.3-7.7); Neutrophils % (A) 59 %; Platelet Count 179 k/uL (150-450); RBC 5.15 m/uL (3.80-5.40); RDW 13.4 % (11.5-15.5); WBC 6.4 k/uL (3.8-10.6)
--- NOTE | 2023-03-12 09:27 | XR ---
EXAMINATION TYPE: XR chest 2V DATE OF EXAM: 03/12/2023 COMPARISON: 02/07/2021 HISTORY: 42-year-old female with chest pain TECHNIQUE: PA and lateral views FINDINGS: The cardiomediastinal silhouette, aorta, and pulmonary vasculature are within normal limits. Lungs an d pleural spaces are clear. IMPRESSION: No acute cardiopulmonary process.
--- NOTE | 2023-03-12 09:28 | XR ---
EXAMINATION TYPE: XR humerus 2 views RT DATE OF EXAM: 03/12/2023 COMPARISON: NONE HISTORY: 42 year-old female right arm pain and TECHNIQUE: 2 views FINDINGS: No acute fracture. Shoulder and elbow articulations appear grossly intact. No periostitis o r osteolysis. IMPRESSION: No acute osseous abnormality seen.
[2023-03-12 09:35] LABS: ALT 24 U/L (4-34); AST 30 U/L (14-36); African American GFR (CKD) >90 (>60 ml/min/1.73 sqM); Albumin 3.8 g/dL (3.5-5.0); Alkaline Phosphatase 68 U/L (38-126); Anion Gap 7 mmol/L; Blood Urea Nitrogen 11 mg/dL (7-17); Carbon Dioxide 22 mmol/L (22-30); Chloride 107 mmol/L (98-107); Glucose 88 mg/dL (74-99); Magnesium 1.9 mg/dL (1.6-2.3); Non-African American GFR(CKD) >90 (>60 ml/min/1.73 sqM); Potassium 4.3 mmol/L (3.5-5.1); Sodium 136 mmol/L (137-145); Total Bilirubin 0.5 mg/dL (0.2-1.3); Total Protein 6.7 g/dL (6.3-8.2)
[2023-03-12 09:39] LABS: INR 0.9 (<1.2); Partial Thromboplastin Time 22.9 sec (22.0-30.0); Prothrombin Time 9.8 sec (9.0-12.0)
[2023-03-12 10:35] VITALS: BP 107/71; PULSE 66; TEMP 98.1
== END 2023-03-12 10:38 | disposition home or self-care (01) ==
LOC: EC 08:10
DX: M79.601 Pain in right arm (principal); Z86.59 Personal history of other mental and behavioral disorders; Z88.6 Allergy status to analgesic agent
CPT/HCPCS: 36415; 71046; 80053; 83735; 84484; 85025; 85610; 85730; 93005; 99284

== ENCOUNTER 2024-04-06 07:48 | Emergency (ER) | payer SELFPAY ==
[2024-04-06 07:59] VITALS: PULSE 70; RESP 18
--- NOTE | 2024-04-06 08:43 | ED ---
Abdominal Pain HPI - General Source: patient, RN notes reviewed Mode of arrival: ambulatory Limitations: no limitations - History of Present Illness MD Complaint: abdominal pain, flank pain <Chen Lynn - Last Filed: 04/06/24 08:41> <Kenia Youngblood - Last Filed: 04/06/24 12:33> - General Chief Complaint: Abdominal Pain Stated Complaint: Abdominal Pain/Vomiting Time Seen by Provider: 04/06/24 08:41 - History of Present Illness Initial Comments: Quick Note: This is a 43-year-old female who presents to the emergency department for right flank pain and right sided abdominal pain. States that she was woken from her sleep by pain to the right side of her abdomen and right mid back. Pain seems to radiate from the back to the abdomen. She then proceeded to vomit. The nausea has since subsided and she feels like the pain is coming in waves. Denies any history of kidney stones or similar pain in the past. Denies any urinary symptoms. (Chen Lynn) 43-year-old female presents emergency department chief complaint of right-sided abdominal and flank pain that started early this morning that woke her up from sleep. States the pain is so severe that she proceeded to have an episode of emesis. Currently she is denying symptoms of abdominal pain. She denies fevers, chills, dysuria, hematuria, increase in urinary frequency or urgency, shortness of breath, chest pain or pressure. History of cholecystectomy and section. (Kenia Youngblood) - Related Data Home Medications Medication Instructions Recorded Confirmed No Known Home Medications 04/06/24 04/06/24 Allergies Allergy/AdvReac Type Severity Reaction Status Date / Time metoclopramide HCl AdvReac Hallucinati Verified 04/06/24 11:58 [From Reglan] ons Review of Systems ROS Other: All systems not noted in ROS Statement are negative. <Chen Lynn - Last Filed: 04/06/24 08:41> ROS Other: All systems not noted in ROS Statement are negative. <Kenia Youngblood - Last Filed: 04/06/24 12:33> ROS Statement: Those systems with pertinent positive or pertinent negative responses have been documented in the HPI. Past Medical History Past Medical History: GERD/Reflux Additional Past Medical History / Comment(s): occasional palpitations History of Any Multi-Drug Resistant Organisms: None Reported Past Surgical History: Section, Cholecystectomy, Hysterectomy Additional Past Surgical History / Comment(s): D&C. Past Anesthesia/Blood Transfusion Reactions: Previous Problems w/ Anesthesia, Postoperative Nausea & Vomiting (PONV) Additional Past Anesthesia/Blood Transfusion Reaction / Comment(s): Had some SOB waking up after last surgery. Past Psychological History: Anxiety Smoking Status: Never smoker Past Alcohol Use History: Occasional Past Drug Use History: None Reported - Past Family History Mother Family Medical History: No Reported History <Chen Lynn - Last Filed: 04/06/24 08:41> General Exam Limitations: no limitations <Chen Lynn - Last Filed: 04/06/24 08:41> General appearance: alert, in no apparent distress Head exam: Present: atraumatic, normocephalic, normal inspection Eye exam: Present: normal appearance, PERRL, EOMI. Absent: scleral icterus, conjunctival injection, periorbital swelling ENT exam: Present: normal exam, mucous membranes moist Neck exam: Present: normal inspection. Absent: tenderness, meningismus, lymphadenopathy Respiratory exam: Present: normal lung sounds bilaterally. Absent: respiratory distress, wheezes, rales, rhonchi, stridor Cardiovascular Exam: Present: regular rate, normal rhythm, normal heart sounds. Absent: systolic murmur, diastolic murmur, rubs, gallop, clicks GI/Abdominal exam: Present: soft, normal bowel sounds. Absent: distended, tenderness, guarding, rebound, rigid Extremities exam: Present: normal inspection, full ROM, normal capillary refill. Absent: tenderness, pedal edema, joint swelling, calf tenderness Back exam: Present: normal inspection Neurological exam: Present: alert, oriented X3, CN II-XII intact Skin exam: Present: warm, dry, intact, normal color. Absent: rash <Kenia Youngblood - Last Filed: 04/06/24 12:33> - General Exam Comments Initial Comments: Visual Physical Exam Vital signs reviewed General: Well-appearing, nontoxic, no acute distress. Head: Normocephalic, atraumatic Eyes: PERRLA, EOMI ENT: Airway patent Chest: Nonlabored breathing Skin: No visual rash, normal skin tone Neuro: Alert and oriented 3 Musculoskeletal: No gross abnormalities (Chen Lynn) Course Vital Signs 04/06/24 04/06/24 07:57 12:22 Temperature 97.9 F 98 F Pulse Rate 70 70 Respiratory 18 18 Rate Blood Pressure 125/85 126/84 O2 Sat by Pulse 98 98 Oximetry Medical Decision Making <Chen Lynn - Last Filed: 04/06/24 08:41> - Lab Data Result diagrams: 04/06/24 09:34 04/06/24 09:34 <Kenia Youngblood - Last Filed: 04/06/24 12:33> - Medical Decision Making I performed the QuickNote portion of this chart. Signed Chen Lynn PA-C. (Chen Lynn) Was pt. sent in by a medical professional or institution ([facility], HANDBELL CHOIR DIRECTOR, urgent care, hospital, or penitentiary...) When possible be specific @ -No Did you speak to anyone other than the patient for history (EMS, parent, family, police, friend...)? What history was obtained from this source @ -No Did you review nursing and triage notes (agree or disagree)? Why? @ -I reviewed and agree with nursing and triage notes Were old charts reviewed (outside hosp., previous admission, EMS record, old EKG, old radiological studies, urgent care reports/EKG's, penitentiary records)? Report findings @ -No old charts were reviewed Differential Diagnosis (chest pain, altered mental status, abdominal pain women, abdominal pain men, vaginal bleeding, weakness, fever, dyspnea, syncope, headache, dizziness, GI bleed, back pain, seizure, CVA, palpatations, mental health, musculoskeletal)? @ -Differential Abdominal Pain Women: Appendicitis, Cholecystitis, diverticulosis, ischemic bowel, pancreatitis, hepatitis, UTI, gastroenteritis, AAA, incarcerated hernia, bowel obstruction, constipation, inflammatory bowel, hepatitis, peptic ulcer disease, splenic infarction, perforated viscus, vulvitis, ovarian torsion, PID, kidney stone, placenta abruption, this is not meant to be an all-inclusive list EKG interpreted by me (3pts min.). @ -None X-rays interpreted by me (1pt min.). @ -None done CT interpreted by me (1pt min.). @ -CT of the abdomen pelvis without contrast reveals a hiatal hernia, no signs of nephrolithiasis or urinary tract obstruction, no signs of bowel obstruction. U/S interpreted by me (1pt. min.). @ -None done What testing was considered but not performed or refused? (CT, X-rays, U/S, labs)? Why? @ -None What meds were considered but not given or refused? Why? @ -None Did you discuss the management of the patient with other professionals (hitesh benítez i.e. , PA, HANDBELL CHOIR DIRECTOR, lab, RT, psych nurse, adoption social worker, receiving teller, teacher, job placement officer, case monitor)? Give summary @ -No Was smoking cessation discussed for >3mins.? @ -No Was critical care preformed (if so, how long)? @ -No Were there social determinants of health that impacted care today? How? (Homelessness, low income, unemployed, alcoholism, drug addiction, transportation, low edu. Level, literacy, decrease access to med. care, prison, rehab)? @ -No Was there de-escalation of care discussed even if they declined (Discuss DNR or withdrawal of care, Hospice)? DNR status @ -No What co-morbidities impacted this encounter? (DM, HTN, Smoking, COPD, CAD, Cancer, CVA, ARF, Chemo, Hep., AIDS, mental health diagnosis, sleep apnea, morbid obesity)? @ -None Was patient admitted / discharged? Hospital course, mention meds given and route, prescriptions, significant lab abnormalities, going to OR and other pertinent info. @ -Discharged. 43-year-old female with abdominal pain. Patient was originally evaluated as a quick note where labs were ordered addition to CT of the abdomen. On my evaluation of the patient she is currently denying symptoms of abdominal pain or nausea. Abdominal exam is benign with no signs of tenderness. Vitals are stable on arrival. Labs including CBC, CMP, lipase within normal limits. CT negative for acute process. Discussion with patient at bedside recommended urinalysis to evaluate for potential infection. Patient denies testing for urine and states that she would like to leave without testing her urine. Recommend the patient follows with her primary care provider in the next week for further evaluation. Strict return parameters discussed with the patient she has verbalized understanding. Discussed with Dr. Lynch. Undiagnosed new problem with uncertain prognosis? @ -No Drug Therapy requiring intensive monitoring for toxicity (Heparin, Nitro, Insulin, Cardizem)? @ -No Were any procedures done? @ -No Diagnosis/symptom? @ -abdominal Pain Acute, or Chronic, or Acute on Chronic? @ -Acute Uncomplicated (without systemic symptoms) or Complicated (systemic symptoms)? @ -Uncomplicated Side effects of treatment? @ -No Exacerbation, Progression, or Severe Exacerbation? @ -No Poses a threat to life or bodily function? How? (Chest pain, [place], [place], pneumonia, PE, COPD, DKA, ARF, appy, cholecystitis, CVA, Diverticulitis, Homicidal, Suicidal, threat to staff... and all critical care pts) @ -No (Kenia Youngblood) - Lab Data Lab Results 04/06/24 04/06/24 04/06/24 Range/Units 09:34 09:34 09:34 WBC 7.7 (3.8-10.6) k/uL RBC 5.23 (3.80-5.40) m/uL Hgb 14.2 (11.4-16.0) gm/dL Hct 44.9 (34.0-46.0) % MCV 85.7 (80.0-100.0) fL MCH 27.1 (25.0-35.0) pg MCHC 31.6 (31.0-37.0) g/dL RDW 13.8 (11.5-15.5) % Plt Count 161 (150-450) k/uL MPV 12.4 Neutrophils % 77 % Lymphocytes % 17 % Monocytes % 3 % Eosinophils % 1 % Basophils % 0 % Neutrophils # 5.9 (1.3-7.7) k/uL Lymphocytes # 1.3 (1.0-4.8) k/uL Monocytes # 0.3 (0-1.0) k/uL Eosinophils # 0.1 (0-0.7) k/uL Basophils # 0.0 (0-0.2) k/uL Sodium 139 (137-145) mmol/L Potassium 4.6 (3.5-5.1) mmol/L Chloride 110 H (98-107) mmol/L Carbon Dioxide 22 (22-30) mmol/L Anion Gap 7 mmol/L BUN 16 (7-17) mg/dL Creatinine 0.62 (0.52-1.04) mg/dL Est GFR (CKD-EPI)AfAm >90 (>60 ml/min/1.73 sqM) Est GFR (CKD-EPI)NonAf >90 (>60 ml/min/1.73 sqM) Glucose 94 (74-99) mg/dL Plasma Lactic Acid Azam 1.2 (0.7-2.0) mmol/L Calcium 9.7 (8.4-10.2) mg/dL Total Bilirubin 0.7 (0.2-1.3) mg/dL AST 32 (14-36) U/L ALT 23 (4-34) U/L Alkaline Phosphatase 66 (38-126) U/L Total Protein 7.1 (6.3-8.2) g/dL Albumin 4.4 (3.5-5.0) g/dL Amylase 58 (30-110) U/L Lipase 90 (23-300) U/L Disposition <Chen Lynn - Last Filed: 04/06/24 08:41> Is patient prescribed a controlled substance at d/c from ED?: No Time of Disposition: 11:56 <Kenia Youngblood - Last Filed: 04/06/24 12:33> Clinical Impression: Abdominal pain, Vomiting Disposition: HOME SELF-CARE Condition: Good Instructions (If sedation given, give patient instructions): Abdominal Pain (ED) Additional Instructions: Return to the emergency department if your symptoms worsen or do not improve. Referrals: Marcela Ulloa MD [Primary Care Provider] - 1-2 days
[2024-04-06 09:46] LABS: Basophils % (A) 0 %; Eosinophils # (A) 0.1 k/uL (0-0.7); Eosinophils % (A) 1 %; HCT 44.9 % (34.0-46.0); HGB 14.2 gm/dL (11.4-16.0); Lymphocytes # (A) 1.3 k/uL (1.0-4.8); Lymphocytes % (A) 17 %; MCH 27.1 pg (25.0-35.0); MCHC 31.6 g/dL (31.0-37.0); MCV 85.7 fL (80.0-100.0); Mean Platelet Volume 12.4; Monocytes # (A) 0.3 k/uL (0-1.0); Monocytes % (A) 3 %; Neutrophils # (A) 5.9 k/uL (1.3-7.7); Neutrophils % (A) 77 %; Platelet Count 161 k/uL (150-450); RBC 5.23 m/uL (3.80-5.40); RDW 13.8 % (11.5-15.5); WBC 7.7 k/uL (3.8-10.6)
--- NOTE | 2024-04-06 09:50 | CT ---
EXAMINATION TYPE: CT abdomen pelvis wo con DATE OF EXAM: 04/06/2024 COMPARISON: 05/29/2012 INDICATION: right flank pain, nausea DLP: 550.1 mGycm, Automated exposure control for dose reduction was used. CONTRAST: 0 mL of Isovue 300. Study performed without Oral Contrast TECHNIQUE: Axial images were obtained from above the diaphragm to the pubic rami in the axial plane a t 5 mm thick sections. Reconstructed images are reviewed on the computer in the coronal plane. FINDINGS: Limited CT sections are obtained the lung bases. The lung bases are clear. Small hiatal hernia is p resent. CT ABDOMEN: Liver: Normal Spleen: Normal Pancreas: Normal Adrenal glands: The adrenal glands are normal. Gallbladder: Not identified. Kidneys: No masses are evident. No hydronephrosis is present. No cysts are present. No renal stone s. Aorta: Normal Inferior vena cava: Normal. CT PELVIS: Loops of bowel within the abdomen and pelvis are normal. This study is without oral contrast chanel iation. Appendix: Normal as visualized. Urinary bladder: Normal. Genitourinary structures: Uterus is not identified. Adnexa appear normal Osseous structures: No suspicious lytic or sclerotic lesions. IMPRESSION: 1. Hiatal hernia. 2. No suspicious renal or ureteral stones. 3. Appendix is visualized appears normal.
[2024-04-06 09:57] LABS: ALT 23 U/L (4-34); AST 32 U/L (14-36); African American GFR (CKD) >90 (>60 ml/min/1.73 sqM); Albumin 4.4 g/dL (3.5-5.0); Alkaline Phosphatase 66 U/L (38-126); Amylase 58 U/L (30-110); Anion Gap 7 mmol/L; Blood Urea Nitrogen 16 mg/dL (7-17); Calcium 9.7 mg/dL (8.4-10.2); Carbon Dioxide 22 mmol/L (22-30); Chloride 110 mmol/L (98-107); Glucose 94 mg/dL (74-99); Lipase 90 U/L (23-300); Non-African American GFR(CKD) >90 (>60 ml/min/1.73 sqM); Potassium 4.6 mmol/L (3.5-5.1); Sodium 139 mmol/L (137-145); Total Bilirubin 0.7 mg/dL (0.2-1.3); Total Protein 7.1 g/dL (6.3-8.2)
[2024-04-06 12:24] VITALS: BP 126/84; TEMP 98
== END 2024-04-06 12:22 | disposition home or self-care (01) ==
LOC: EC 07:48
DX: R10.9 Unspecified abdominal pain (principal); R11.10 Vomiting, unspecified; Z88.8 Allergy status to other drugs, medicaments and biological substances
CPT/HCPCS: 36415; 74176; 80053; 82150; 83605; 83690; 85025; 99284